=== PATIENT | female | born 1945 | race African-American/Black ===

== ENCOUNTER 2018-12-08 14:44 | Inpatient (IN) | payer MEDICARE, OTHER ==
[~2018-12-08 14:44] MED LIST: Iopamidol 370 76% 100 ML VIAL ONE
[2018-12-08] MEDS ORDERED: Morphine 4 MG/ML VIAL ONE (15:31)
[2018-12-08] MEDS ORDERED: Ondansetron PF 4 MG/2 ML Vial ONE (15:31)
--- NOTE | 2018-12-08 16:15 | RAD ---
AP VIEW CHEST: HISTORY: Syncope. History of GI bleeding. DATE: 12/08/2018. FINDINGS: AP view chest demonstrates intracardiac pacing device in place. Calcification of the aorta is seen. There is distension of the colon beneath the right and left hemidiaphragm. Surgical clips are seen in the left axillary region. IMPRESSION: Distended without evidence of definite free intraperitoneal air. No acute intrathoracic abnormality seen. POS: [facility]
[2018-12-08 16:17] LABS: #Eosinphils 0.1 thou/uL (0.0-0.7); #Lymphocytes 1.3 thou/uL (1.20-3.40); #Monocytes 0.4 thou/uL (0.11-0.59); #Neutrophils 4.4 thou/uL (1.40-6.50); %Basophils 0.4 % (0.0-1.0); %Eosinophils 2.3 % (0.0-10.0); %Lymphocytes 21.1 % (21.0-51.0); %Monocytes 6.2 % (0.0-10.0); Hemoglobin 14.4 g/dL (12.0-16.0); Mean Corpuscular HGB CONC 32.4 g/dL (32.0-36.0); Mean Corpuscular Volume 92.6 fL (78.0-98.0); Mean Platelet Volume 10.3 fL (7.4-10.4); Platelet Count 173 thou/uL (130-400); RBC Distribution Width 14.7 % (11.5-14.5); White Blood Cell (WBC) Count 6.3 thou/uL (4.8-10.8)
[2018-12-08 16:18] LABS: ALT (SGPT) 55 U/L (8-55); AST (SGOT) 92 U/L (5-34); Albumin 4.7 g/dL (3.4-4.8); Alkaline Phosphatase 108 U/L (40-150); Anion Gap 23 mmol/L (10-20); BUN (Urea Nitrogen) 17 mg/dL (9.8-20.1); Bilirubin, Total 0.6 mg/dL (0.2-1.2); CK (CPK) 60 U/L (29-168); Calc. Creatinine Clearance 0 mL/min (70-130); Carbon Dioxide 17 mmol/L (23-31); Chloride 102 mmol/L (98-107); Estimated GFR-MDRD 50; Globulin 4.4 g/dL (2.4-3.5); Glucose 131 mg/dL (83-110); Lipase 14 U/L (8-78); Potassium 3.6 mmol/L (3.5-5.1); Protein, Total 9.1 g/dL (6.0-8.3); Sodium 138 mmol/L (136-145)
[2018-12-08 16:26] LABS: Bilirubin Moderate (Negative); Blood, Urine Negative (Negative); Clarity TURBID (Clear); Glucose, Urine (Dipstick) Negative (Negative); Leukocyte Small (Negative); Nitrite Negative (Negative); Protein, Urine (Dipstick) 100 mg/dL (Neg-Trace); Specific Gravity, Urine 1.029 (1.002-1.036); pH, Urine 5.5 (5.0-9.0)
[2018-12-08 16:28] LABS: Squamous Epithelial 21-50 HPF (0-3)
[2018-12-08 16:32] LABS: Pathc Cast-AUWi Flag 20.78 (0-2.49)
[2018-12-08 16:42] LABS: Bacteria/HPF 1+ HPF (None Seen); RBC/HPF 0-3 HPF (0-3)
[2018-12-08 16:43] LABS: Crystals/HPF 1+ CA OXALATE HPF (Negative); Manual Microscopic Reviewed? No Path Casts Seen; Renal Epithelial None Seen HPF (0-3); Transitional Epithelial NONE SEEN HPF (0-3); Yeast-All Forms None Seen HPF (None Seen)
[2018-12-08 17:16] LABS: Base Excess-Venous 0.4 mmol/L (-2.0 to 3.0); Bicarbonate (HCO3v) 21.7 mmol/L (22.0-28.0); CO2 Tension (PvCO2) 25.5 mmHg (40.0-50.0); Calcium, Ionized 1.05 mmol/L (See Comments:); Chloride 105 mmol/L (98-107); Hemoglobin - Calc 12.4 g/dL (12.0-16.0); O2 Tension (PvO2) 191.1 mmHg (35.0-45.0); Potassium 3.8 mmol/L (3.5-5.1); Sodium 139 mmol/L (138-145); T. Carbon Dioxide 22.5 mmol/L (22.0-28.0); pH (Venous) 7.538 (7.320-7.430); vO2 Saturation-calc 99.8 % (60.0-85.0)
[2018-12-08 18:06] LABS: INR-International Normal Ratio 1.8; Prothrombin Time 21.3 SEC (12.0-14.7)
[2018-12-08] MEDS ORDERED: Sodium Chloride 0.9% 100 ML ONE (18:19)
[2018-12-08] MEDS ORDERED: Piperacillin/Tazobactam 4.5 GM VIAL ONE (18:19)
--- NOTE | 2018-12-08 19:26 | CT ---
CTA ABDOMEN AND PELVIS WITH IV CONTRAST AND 3D REFORMATTED IMAGING: INDICATIONS: History of atrial fibrillation, diabetes, and abdominal surgery, status post syncopal episode, with c hest pain and shortness of breath. FINDINGS: The lung bases are clear, except for mild subsegmental volume loss within both lower lobes. There are dilated loops of small bowel seen within the central abdomen. There is post surgical larose e of partial small bowel obstruction. There is transition zone due to decompressed bowel within the right mid abdomen, at the level of the anastomotic suture line of the right mid abdomen, on image 81 of series 2. The colon is largely decompressed. There is a moderate amount of retained stool within the visualized colon. No definite aortic stenosis, occlusion, or aneurysmal formation is demonstrated. The celiac, SMA, re nal arteries, and ZOYA are patent. There are mild vascular calcifications involving the abdominal aor ta and the iliac vasculature. Small calcifications are seen within the lower pelvis, suspicious for small phleboliths. Low density material is seen within the uterine canal, which is nonspecific. No lymphadenopathy or free fluid is evident. The gallbladder is surgically absent. There is fatty infiltration of the liver. The spleen, pancreas, and adrenal glands are normal appearing. There is diffuse osteopenia. IMPRESSION: 1. Findings of severe partial small bowel obstruction with a transition zone seen at the level of th e anastomotic suture line within the right lower quadrant of the abdomen. 2. Fatty liver. 3. Bibasilar atelectasis. 4. Mild amount of retained stool within the colon. 5. Some low density material seen distending the endometrial canal is nonspecific and may be artifac tual in nature. A non-emergent follow-up pelvic ultrasound may be helpful for improved characterizat ion. Endometrial abnormalities, such as hyperplasia or polyposis, is not excluded. 6. Other chronic findings as above. POS: [facility]
[2018-12-08] MEDS ORDERED: hydrALAZINE 20 MG/ML VIAL SLOW IVP PRN (20:14)
[2018-12-08] MEDS ORDERED: Morphine 4 MG/ML VIAL SLOW IVP PRN ×2 (20:14)
[2018-12-08] MEDS ORDERED: Ondansetron PF 4 MG/2 ML Vial IVP PRN (20:14)
[2018-12-08] MEDS ORDERED: Ketorolac Tromethamine 30 MG/ML VIAL IVP PRN (20:17)
[2018-12-08] MEDS ORDERED: Acetaminophen 1,000 MG in Premix Bag 1 BAG IVPB PRN (20:17)
--- NOTE | 2018-12-08 20:41 | RAD ---
SINGLE VIEW ABDOMEN: INDICATIONS: history of a GI bleed and NG tube placement. FINDINGS: Since the CT of the abdomen and pelvis dated 11/28/2018, there has been placement of a gastric cathet er, coiled within the region of the fundus and projecting in the region of the gastric body. There a re numerous dilated loops of small bowel. The lung bases are clear. There is partial visualization of a pacemaker generator overlying the left lower chest wall. IMPRESSION: 1. Nasogastric tube as above. 2. Severe partial small bowel obstruction. POS: [facility]
[2018-12-08 21:15] LABS: Lactic Acid 1.6 mmol/L (0.5-2.2)
--- NOTE | 2018-12-08 22:29 | HP ---
HISTORY OF PRESENT ILLNESS: A 72-year-old black female, brought to the hospital because of acute onset of abdominal distention and pain, nausea, and vomiting. She last had a bowel movement this morning. She passed flatus this morning, but not since her abdominal pain started and she had distention. She had laboratories noting a white count of 6, hemoglobin of 14. Her sodium was 139, potassium 3.8, carbon dioxide 17, BUN 17, and creatinine 1.27. Lactic acid 2.8, calcium 11.0. Liver function tests are normal. SOCIAL HISTORY: Tobacco, none. Alcohol, none. MEDICATIONS: Not listed, but she reports she is on Coumadin, last took it yesterday. Did not have a list of her medications. PAST SURGICAL HISTORY: The patient reports having laparoscopic appendectomy in February 2018 at [facility], laparoscopic cholecystectomy in August 2018 at [facility]. She underwent apparent laparotomy for bowel obstruction in October 2014. She had to be readmitted apparently for an NG tube. Her history is somewhat confusing. She has an infraumbilical scar. She reports is old, but she is unable to give me the history of that. ALLERGIES: BACTRIM. PAST MEDICAL HISTORY: Atrial fibrillation, on anticoagulation. She has a pacemaker. She cannot recall her desolderer name when she last saw him. PHYSICAL EXAMINATION: VITAL SIGNS: Heart rate 74, respiratory rate 18. HEAD EARS, EYES, NOSE, AND THROAT: Unremarkable. LUNGS: Clear to auscultation. CARDIAC: Regular rate and rhythm without murmur or gallop. ABDOMEN: Distended, tympanitic, scars per above history. LABORATORY DATA: Abdominal and pelvis CAT scan. CTA reveals dilated loops of small bowel, postsurgical changes, small bowel obstruction transition zone to digressed bowel within the right mid abdomen at the level of anastomotic suture line of the right tylor-abdomen, colon is decompressed, large amount of retained stool, gallbladder surgically active. Fatty liver. No lymphadenopathy. Diffuse osteopenia. Uterus in place. PT 21, INR 1.8. White count 6, hemoglobin 14. ASSESSMENT AND PLAN: 1. Bowel obstruction. The patient with some reluctance to allow this, placed an NG tube is placed to low intermittent suction. The patient will be admitted with repeat abdominal x-rays tomorrow. IV fluid resuscitation for dehydration. Follow up x-rays and we will make further recommendations pending clinical course. 2. Status post recent hospitalization at [facility] for bowel obstruction, now with recurrent bowel obstruction. 3. History of atrial fibrillation, on anticoagulation. 4. Pacemaker status. 5. Hypertension. Job ID: [id number]
[2018-12-09] MEDS ORDERED: Morphine 4 MG/ML VIAL ONE (00:09)
[2018-12-09] MEDS ORDERED: Ondansetron PF 4 MG/2 ML Vial ONE (00:14)
[2018-12-09] MEDS ORDERED: Enoxaparin Sodium 40 MG/0.4 ML SYRINGE ONE (02:23)
[2018-12-09 03:41] LABS: #Lymphocytes 0.9 thou/uL (1.20-3.40); #Monocytes 0.4 thou/uL (0.11-0.59); #Neutrophils 3.6 thou/uL (1.40-6.50); %Basophils 0.3 % (0.0-1.0); %Eosinophils 0.7 % (0.0-10.0); %Lymphocytes 18.4 % (21.0-51.0); %Monocytes 8.3 % (0.0-10.0); %Neutrophils 72.3 % (42.0-75.0); Hemoglobin 12.9 g/dL (12.0-16.0); Mean Corpuscular Hemoglobin 29.5 pg (27.0-31.0); Mean Corpuscular Volume 92.3 fL (78.0-98.0); Mean Platelet Volume 8.4 fL (7.4-10.4); Platelet Count 224 thou/uL (130-400); RBC Distribution Width 14.5 % (11.5-14.5); Red Blood Cell (RBC) Count 4.39 mill/uL (4.20-5.40)
[2018-12-09] MEDS ORDERED: Ketorolac Tromethamine 30 MG/ML VIAL ONE ×2 (03:45→15:51)
[2018-12-09 03:55] LABS: ALT (SGPT) 66 U/L (8-55); AST (SGOT) 72 U/L (5-34); Albumin 4.2 g/dL (3.4-4.8); Alkaline Phosphatase 94 U/L (40-150); Anion Gap 17 mmol/L (10-20); BUN (Urea Nitrogen) 18 mg/dL (9.8-20.1); Bilirubin, Total 0.5 mg/dL (0.2-1.2); Calc. Creatinine Clearance 0 mL/min (70-130); Carbon Dioxide 23 mmol/L (23-31); Chloride 105 mmol/L (98-107); Estimated GFR-MDRD 50; Globulin 3.7 g/dL (2.4-3.5); Glucose 114 mg/dL (83-110); Potassium 3.6 mmol/L (3.5-5.1); Protein, Total 7.9 g/dL (6.0-8.3); Sodium 141 mmol/L (136-145)
[2018-12-09] MEDS: Lactated Ringer's 1,000 ML IV SCH ×4 (08:15→21:52)
[2018-12-09] MEDS: Pantoprazole 40 MG VIAL IVP SCH (08:15)
[2018-12-09] MEDS: Enoxaparin Sodium 40 MG/0.4 ML SYRINGE SC SCH ×2 (08:18→19:16)
[2018-12-09 09:53] VITALS: BMI 22.7
--- NOTE | 2018-12-09 10:40 | RAD ---
ABDOMEN TWO VIEWS: CHEST UPRIGHT VIEW: HISTORY: Small bowel obstruction. COMPARISON: 12/08/2018 FINDINGS: Supine and upright views of the abdomen and upright view of the chest show multiple air-filled loops of bowel. These are both large and small bowel loops. Air and stool are seen to the level of the co karina. No free air is seen on the upright examination. Air-fluid levels are seen on the upright exami nation. An NG tube is seen in the stomach. A pacemaker is seen with its leads in the right atrium and ventricle. There is elevation of the righ t hemidiaphragm. IMPRESSION: 1. Findings consistent with small bowel obstruction. 2. No significant change has occurred compared to the prior radiograph. POS: [facility]
[2018-12-09] MEDS ORDERED: Acetaminophen 1,000 MG in Premix Bag 1 BAG IVPB SCH (13:00)
[2018-12-09] MEDS ORDERED: cefOXitin 2 GM in Sodium Chloride 0.9% 100 ML IVPB SCH (13:00)
--- NOTE | 2018-12-09 13:23 | PRG ---
DATE OF SERVICE: 12/09/2018 SUBJECTIVE: Ms. Duval today has not passed any gas or stool since she has been in the emergency room last night. 97.3 degrees, 69, 138/62. NG tube output on the floor is about 300 to 400 mL. It is fecal in nature. Her white count this morning is 5, hemoglobin 12.9. Basic metabolic profile is normal. CO2 of 23. Sodium 141, creatinine 1.27. The patient's abdominal x-rays this morning revealed marked distention of small bowel. Proper NG tube positioning. Findings consistent with complete bowel obstruction. There is no significant gas or stool in her colon. There are markedly distended small bowel loops. OBJECTIVE: LUNGS: Clear to auscultation. CARDIAC: Regular rate and rhythm. ABDOMEN: Soft, distended, tympanitic. No evidence of hernias. ASSESSMENT AND PLAN: Complete bowel obstruction. Would recommend laparotomy, adhesiolysis, procedures indicated. I have talked to the family about general anesthesia and a TAP block. I have discussed with them the possibilities of closed-loop obstruction and possibility of ischemic or gangrenous bowel, although she is not tachycardic. White count is normal and CO2 is normal. Given these concerns and lack of flatus or stool, would recommend laparotomy today. Job ID: [id number]
[2018-12-09] MEDS ORDERED: PROPOFOL 200 MG/20 ML VIAL ONE (13:42)
[2018-12-09] MEDS ORDERED: PHENYLEPHRINE-NS 100 MCG/ML 10 ML SYRINGE ONE (13:42)
[2018-12-09] MEDS ORDERED: Rocuronium Bromide 10 MG/ML (10ML VIAL) ONE (13:42)
[2018-12-09] MEDS ORDERED: Bupivacaine HCl 0.5%/Epinephrine 1:200,000/PF 30 ml Vial ONE (13:42)
[2018-12-09] MEDS ORDERED: Lidocaine 1% PF 5 ML VIAL ONE (13:42)
[2018-12-09] MEDS ORDERED: Glycopyrrolate 0.2 MG/ML 5 ML SYRINGE ONE (13:42)
[2018-12-09] MEDS ORDERED: cefOXitin Sodium/Dextrose,Iso 2 GM in Premix Bag 1 BAG IVPB SCH (13:45)
[2018-12-09] MEDS ORDERED: Fentanyl 100 MCG/2 ML VIAL ONE ×4 (14:19→19:41)
[2018-12-09] MEDS ORDERED: Midazolam HCl 2 mg/2 ml Vial ONE (14:19)
[2018-12-09] MEDS ORDERED: Ondansetron HCl/PF 4 MG/2 ML Vial IVP PRN (19:22)
--- NOTE | 2018-12-09 19:28 | RAD ---
CHEST ONE VIEW 12/09/18 INDICATION: Central line placement. FINDINGS: There is a right subclavian central venous catheter projecting in the region of the cavoatrial juncti on. There is gas underlying the hemidiaphragms consistent with the patient's recent postop state. Gas tric catheter projects in the region of the gastric fundus. Heart size is normal. There is a dual le ad pacemaker overlying the left chest wall. No acute osseous abnormality is evident. IMPRESSION: 1. Right subclavian central venous catheter projecting in the cavoatrial junction. No pneumotho rax is demonstrated. 2. Pneumoperitoneum consistent with patient's recent postoperative state from a laparotomy. 3. Gastric catheter tip projecting in the region of the fundus. POS: [facility]
[2018-12-09] MEDS: Acetaminophen 1,000 MG in Premix Bag 1 BAG IVPB SCH (23:44)
--- NOTE | 2018-12-10 01:10 | OP ---
DATE OF PROCEDURE: 12/09/2018 PREOPERATIVE DIAGNOSIS: Small bowel obstruction at the ileoileal anastomosis performed at [facility] earlier this year. POSTOPERATIVE DIAGNOSES: Small bowel obstruction at the ileoileal anastomosis performed at [facility] earlier this year and poor IV access. PROCEDURES: 1. Placement of right subclavian vein central line. 2. Laparotomy. 3. Ileocecal resection with anastomosis. ANESTHESIA: General, TAP block. ESTIMATED BLOOD LOSS: 100 mL. DESCRIPTION OF PROCEDURE: The patient was taken to the operating room, where under general anesthesia, Yu catheter was placed, and right paraclavicular area was prepared with ChloraPrep and draped in routine fashion. Trocar catheter introduced in the right subclavian vein in infraclavicular approach, obtained good return of venous blood, J-wire threaded, trocar catheter removed, and skin was enlarged sharply. Dilator was placed and removed. Distal port of the triple-lumen catheter was placed over the J-wire into the subclavian vein and 2 interrupted suture of 3-0 silk. J-wire removed. Sterile dressing applied. Each port filled with blood and flushed with saline solution and connected to IV fluid solution. Abdomen was prepared with ChloraPrep and draped in routine fashion Yu catheter was placed at the beginning of the procedure and left. A midline incision made through the old scar and carried down the skin, subcutaneous tissue, midline fascia, and abdominal cavity sharply. Small bowel was markedly dilated from the ligament of Treitz distally, had ileoileal anastomosis near the terminal ileum. Staple line was appreciated, and small bowel was dilated proximal to this, and a 4 inch segment of ileum was not dilated. It was felt, although I could not palpate an obstructive process. This is the point of obstruction both appreciated radiologically on CAT scan and laparotomy. For this reason, ileocecectomy undertaken by mobilizing the right colon hepatic flexure using the cautery. The ileocecectomy identified resecting the small bowel ileum just proximal to ileoileal anastomosis, divided the mesentery between clamps and ligated with 2-0 silk ties using the LigaSure. Cecum dissected free and staying close to the ileocecal area and the colon to preserve blood supply. The mesentery was divided serially with the LigaSure. Midtransverse colon divided with a DIAMANTE stapler and a [id number]-[id number] anastomosis created with 2 fires of DIAMANTE blue load stapler. Mesenteric defect closed with 2-0 silk, anastomosis reinforced with interrupted Lembert suture with 3-0 silk. Staple line inverted with 3-0 silk for hemostasis. Good anastomosis palpated. Small bowel contents milked retrograde into the stomach and new NG tube exchanger noted to be in good position. Abdominal cavity is irrigated and irrigant evacuated. Wound was protected during the procedure and contaminated material was discarded, and gloves and gowns exchanged prior to closing the wound and completing the operation. Midline fascia was closed with continuous suture of #1 PDS. Skin and subcutaneous tissues irrigated copiously. Good hemostasis ensured. Skin approximated with philip. Prevena applied. The patient tolerated the procedure well. Job ID: [id number]
[2018-12-10] MEDS: Acetaminophen 1,000 MG in Premix Bag 1 BAG IVPB SCH ×4 (05:02→23:38)
[2018-12-10] MEDS: Lactated Ringer's 1,000 ML IV SCH ×3 (05:03→18:20)
[2018-12-10 07:16] LABS: #Eosinphils 0.1 thou/uL (0.0-0.7); #Lymphocytes 0.4 thou/uL (1.20-3.40); #Monocytes 0.3 thou/uL (0.11-0.59); #Neutrophils 3.1 thou/uL (1.40-6.50); %Eosinophils 2.9 % (0.0-10.0); %Lymphocytes 10.3 % (21.0-51.0); %Monocytes 6.9 % (0.0-10.0); %Neutrophils 79.9 % (42.0-75.0); Hemoglobin 10.9 g/dL (12.0-16.0); Mean Corpuscular HGB CONC 32.3 g/dL (32.0-36.0); Mean Corpuscular Hemoglobin 30.3 pg (27.0-31.0); Mean Platelet Volume 8.4 fL (7.4-10.4); Platelet Count 179 thou/uL (130-400); RBC Distribution Width 14.2 % (11.5-14.5); Red Blood Cell (RBC) Count 3.61 mill/uL (4.20-5.40); White Blood Cell (WBC) Count 3.9 thou/uL (4.8-10.8)
[2018-12-10 07:40] LABS: ALT (SGPT) 30 U/L (8-55); AST (SGOT) 27 U/L (5-34); Albumin 2.9 g/dL (3.4-4.8); Alkaline Phosphatase 63 U/L (40-150); Anion Gap 10 mmol/L (10-20); BUN (Urea Nitrogen) 19 mg/dL (9.8-20.1); Bilirubin, Total 0.5 mg/dL (0.2-1.2); Calc. Creatinine Clearance 53 mL/min (70-130); Calcium 8.4 mg/dL (7.8-10.44); Carbon Dioxide 26 mmol/L (23-31); Chloride 108 mmol/L (98-107); Estimated GFR-MDRD 69; Globulin 2.6 g/dL (2.4-3.5); Glucose 73 mg/dL (83-110); Potassium 3.4 mmol/L (3.5-5.1); Protein, Total 5.5 g/dL (6.0-8.3); Sodium 141 mmol/L (136-145)
[2018-12-10] MEDS: Ketorolac Tromethamine 30 MG/ML VIAL IVP SCH (09:27)
[2018-12-10] MEDS: Pantoprazole 40 MG VIAL IVP SCH (09:28)
[2018-12-10] MEDS ORDERED: Potassium Chloride 40 MEQ in Premix Bag 1 BAG IVPB SCH (12:30)
--- NOTE | 2018-12-10 12:50 | PRG ---
DATE OF SERVICE: 12/10/2018 SUBJECTIVE: Ms. Duval is doing well today. She is 97.7, 85, 135/79. She NG tube. She feels much better. She is not having any abdominal pain. Prevena wound suction device over abdomen to be removed prior to discharge. OBJECTIVE: LUNGS: Clear to auscultation. CARDIAC: Regular rate and rhythm. No murmur or gallop. ABDOMEN: Soft. Bowel sounds present. Nondistended. Non-tympanitic. EXTREMITIES: Unremarkable. LABORATORY DATA: White count 3, hemoglobin 10.9. Basic metabolic profile; sodium 141, potassium 3.4, chloride 108, glucose 73 creatinine is normalized to 0.96, it was 1.27 yesterday on admission. ASSESSMENT AND PLAN: One day postop ileocecectomy for obstruction and prior ileal anastomosis performed at [facility] in the last few months. Pathology pending. No intraoperative finding to suggest a malignancy. Await pathology report. We would remove her NG tube. Continue sips and chips, and sips of water, probably start her on liquids tomorrow if she does not have any nausea or vomiting. Job ID: [id number]
[2018-12-10] MEDS: Potassium Chloride 20 MEQ in Premix Bag 1 BAG IVPB SCH ×2 (14:39→16:12)
[2018-12-10] MEDS: Enoxaparin Sodium 40 MG/0.4 ML SYRINGE SC SCH (20:36)
[2018-12-11 05:18] LABS: Anion Gap 10 mmol/L (10-20); BUN (Urea Nitrogen) 19 mg/dL (9.8-20.1); Calc. Creatinine Clearance 61 mL/min (70-130); Calcium 8.1 mg/dL (7.8-10.44); Carbon Dioxide 23 mmol/L (23-31); Chloride 109 mmol/L (98-107); Estimated GFR-MDRD 80; Glucose 63 mg/dL (83-110); Sodium 138 mmol/L (136-145)
[2018-12-11] MEDS: Lactated Ringer's 1,000 ML IV SCH (06:33)
[2018-12-11] MEDS: Acetaminophen 1,000 MG in Premix Bag 1 BAG IVPB SCH ×2 (06:33→11:54)
[2018-12-11 06:52] LABS: #Eosinphils 0.5 thou/uL (0.0-0.7); #Lymphocytes 0.7 thou/uL (1.20-3.40); #Monocytes 0.3 thou/uL (0.11-0.59); #Neutrophils 3.6 thou/uL (1.40-6.50); %Basophils 0.3 % (0.0-1.0); %Eosinophils 9.1 % (0.0-10.0); %Lymphocytes 14.1 % (21.0-51.0); %Monocytes 6.1 % (0.0-10.0); %Neutrophils 70.4 % (42.0-75.0); Hemoglobin 9.5 g/dL (12.0-16.0); Mean Corpuscular Hemoglobin 29.4 pg (27.0-31.0); Mean Corpuscular Volume 94.8 fL (78.0-98.0); Mean Platelet Volume 8.5 fL (7.4-10.4); Platelet Count 172 thou/uL (130-400); RBC Distribution Width 14.3 % (11.5-14.5); Red Blood Cell (RBC) Count 3.24 mill/uL (4.20-5.40); White Blood Cell (WBC) Count 5.1 thou/uL (4.8-10.8)
[2018-12-11] MEDS: Ketorolac Tromethamine 30 MG/ML VIAL IVP SCH (08:04)
[2018-12-11] MEDS ORDERED: traMADol HCl 50 MG TAB PO PRN ×2 (08:38)
--- NOTE | 2018-12-11 14:21 | PRG ---
DATE OF SERVICE: 12/11/2018 SUBJECTIVE: Irma Duval is doing well today. She is tolerating her diet. She is concerned about having some blood with her stool yesterday, but has not had any more bleeding today. OBJECTIVE: VITAL SIGNS: Temperature 97.8, heart rate 70, blood pressure 111/63. GENERAL: She is tolerating her full liquid diet. She is not having nausea or vomiting. LUNGS: Clear to auscultation. CARDIAC: Rhythm rate and rhythm without murmur or gallop. ABDOMEN: Soft, nontender. Wound Prevena VAC in place. LABORATORY DATA: Hemoglobin this morning is 9.5, yesterday 10.9. Chemistries normal. Normal BUN and creatinine. ASSESSMENT AND PLAN: The patient is doing well today. Her wound is doing well. She is having a slight amount of bleeding per rectum occasionally with stools. Lovenox will be held and CBC checked tomorrow, and anticipate, she can be discharged home tomorrow. Job ID: [id number]
[2018-12-11] MEDS: metFORMIN 500 MG TAB PO SCH (17:15)
[2018-12-12 04:57] LABS: #Eosinphils 0.4 thou/uL (0.0-0.7); #Lymphocytes 0.7 thou/uL (1.20-3.40); #Monocytes 0.3 thou/uL (0.11-0.59); %Eosinophils 9.6 % (0.0-10.0); %Lymphocytes 15.9 % (21.0-51.0); %Monocytes 5.8 % (0.0-10.0); %Neutrophils 68.7 % (42.0-75.0); Hemoglobin 8.7 g/dL (12.0-16.0); Mean Corpuscular HGB CONC 32.3 g/dL (32.0-36.0); Mean Corpuscular Hemoglobin 30.7 pg (27.0-31.0); Platelet Count 163 thou/uL (130-400); RBC Distribution Width 13.9 % (11.5-14.5); Red Blood Cell (RBC) Count 2.84 mill/uL (4.20-5.40); White Blood Cell (WBC) Count 4.4 thou/uL (4.8-10.8)
[2018-12-12] MEDS ORDERED: Acetaminophen 500 MG TAB PO PRN (06:00)
[2018-12-12] MEDS ORDERED: Levothyroxine Sodium 25 MCG TAB PO SCH (06:00)
[2018-12-12] MEDS: metFORMIN 500 MG TAB PO SCH (07:43)
[2018-12-12] MEDS ORDERED: Atorvastatin Calcium 40 MG TAB PO SCH (09:00)
[2018-12-12] MEDS ORDERED: Warfarin Sodium 10 MG TAB PO SCH (09:00)
--- NOTE | 2018-12-12 10:53 | PRG ---
DATE OF SERVICE: 12/12/2018 SUBJECTIVE: Irma Duval is doing well today. She is tolerating diet. She has had a bowel movement. She has not had any more rectal bleeding. Lovenox was held last night. OBJECTIVE: VITAL SIGNS: 97.9 degrees, 79, and 125/73. HEAD, EARS, EYES, NOSE, AND THROAT: Unremarkable. LUNGS: Clear to auscultation. CARDIAC: Regular rate and rhythm without murmur or gallop. ABDOMEN: Soft and nontender. Prevena wound VAC removed. Staple line intact. EXTREMITIES: Unremarkable. ASSESSMENT AND PLAN: The patient is doing well. She has had 1 of 2 blood cultures positive just for gram-positive coccus. I just called in my microbiology, this is from admission ER on 12/08/2018. She has been afebrile. White count has been normal. I suspect this is a contaminant as it is only 1 of 2 cultures. We will give her 1 dose of vancomycin before removing her central line and we will send her home with Bactrim DS 1 p.o. b.i.d. and she will follow up in my office in a week to 10 days for staple removal. Job ID: [id number]
[2018-12-12] MEDS ORDERED: Vancomycin HCl 1 GM in Premix Bag 1 BAG IVPB SCH (11:30)
[2018-12-12 11:43] VITALS: BP 136/87; TEMP 98.7
--- NOTE | 2018-12-12 12:05 | DIS ---
DATE OF ADMISSION: 12/08/2018 DATE OF DISCHARGE: 12/12/2018 DISCHARGE DIAGNOSES: Bowel obstruction from ileoileal anastomosis. Pathology reveals small bowel smokeless ischemic CAT changes, extensive adhesions surrounding this foreign body giant cell reaction near the ileoileal anastomosis margin resections free of ischemia. No malignancy. Ileocecectomy performed. PROCEDURE ON THIS HOSPITALIZATION: Abdominal pelvis CTA from the emergency room, abdominal x-rays on 12/09/2018, laparotomy adhesiolysis, ileocecectomy resection with anastomosis, and Prevena wound VAC applied. HISTORY: A 72-year-old black female with multiple operations, [facility] reports here out of frustration due to recurrent problems, she was seen on CAT scan to have what looked like a bowel obstruction and a previous ileoileal anastomosis. She was unaware of any small bowel resection to be performed at [facility] in the past. She for this reason, was taken to the operating room and operation performed open because of distended bowel. Findings were that of markedly distended small bowel with thickened wall, indicating chronic nature with ileal anastomosis and a short segment ileum before the cecum nondistended. She underwent ileocecal anastomosis resection and anastomosis in postop did well, convalesced, tolerated diet. She remained afebrile. In the emergency room, she had had 2 blood cultures obtained on the date of planned discharge. Microbiology called and stated that 1 of 2 cultures positive for gram-positive coccus. She has been afebrile and asymptomatic and white count is normal. She was given 1 dose of vancomycin prior to discharge, sent home with Ultram p.r.n. pain, Tylenol, Motrin p.r.n. pain, and Cipro 500 p.o. b.i.d. for 1 week and follow up in my office in about a week. Job ID: [id number]
[2018-12-12 13:19] LABS: INR-International Normal Ratio 2.7
[2018-12-12] MEDS ORDERED: Ciprofloxacin 500 MG TAB PO SCH (20:00)
--- NOTE | 2018-12-13 15:28 | EKG ---
Test Reason : Blood Pressure : / mmHG Vent. Rate : 095 BPM Atrial Rate : 095 BPM P-R Int : 196 ms QRS Dur : 072 ms QT Int : 366 ms P-R-T Axes : 106 -25 166 degrees QTc Int : 459 ms Normal sinus rhythm Left ventricular hypertrophy with repolarization abnormality Inferior infarct , age undetermined Left axis deviation Inverted T wave V3, V4,V6 Abnormal ECG Confirmed by YOJANA Aguirre, TEETEE ([id number]), editor in chief newspaper KAY CARTER ([id number]) on 12/13/2018 3:28:26 PM Referred By: Confirmed By:TEETEE DIAL M.D.
== END 2018-12-12 13:20 | disposition home or self-care (01) | DRG 330 ==
LOC: ERS 14:44 → ERHOLD 20:14 → T4-B 12-09 07:40 → SJJU 12-09 20:14
PROVIDERS: ADMIT Specialist; ATTEND Specialist
PROC: 0DTH0ZZ Resection of Cecum, Open Approach (ICD-10-PCS; principal; 2018-12-09)
PROC: 05H533Z Insertion of Infusion Device into Right Subclavian Vein, Percutaneous Approach (ICD-10-PCS; 2018-12-09)
DX: K56.691 Other complete intestinal obstruction (principal); K62.5 Hemorrhage of anus and rectum; I48.91 Unspecified atrial fibrillation; I10 Essential (primary) hypertension; Z79.01 Long term (current) use of anticoagulants; Z95.0 Presence of cardiac pacemaker; Z88.2 Allergy status to sulfonamides
CPT/HCPCS: 36415; 36416; 51701; 71045; 74018; 74022; 74174; 80048; 80053; 81003; 81015; 82010; 82274; 82330; 82550; 82803; 83605; 83690; 84484; 85025; 85610; 85730; 86850; 86900; 86901; 87040; 87086; 87149; 88307; 93005; 94760; 96361; 96365; 96372; 96375; 96376; A4353; C9113; J0131; J0670; J1642; J1650; J1885; J2001; J2250; J2270; J2405; J2543; J2704; J3010; J3370; J3480; J7050; Q9967

== ENCOUNTER 2022-04-02 07:06 | Outpatient (CLI) | payer MEDICARE ==
[2022-04-02 07:54] LABS: #Eosinphils 0.1 10x3/uL (0.0-0.5); #Monocytes 0.4 10x3/uL (0.0-1.1); #Neutrophils 2.2 10x3/uL (1.5-8.4); %Basophils 0.5 % (0.0-2.0); %Lymphocytes 32.1 % (18.0-47.0); %Monocytes 9.5 % (0.0-10.0); %Neutrophils 55.6 % (40.0-75.0); Mean Corpuscular HGB CONC 33.8 g/dL (32.0-36.0); Mean Corpuscular Volume 91.6 fl (81.6-98.3); Mean Platelet Volume 10.2 fl (7.4-10.4); Platelet Count 200 10x3/uL (150-450); RBC Distribution Width 15.1 % (11.5-14.5); Red Blood Cell (RBC) Count 4.52 10x6/uL (3.90-5.03)
[2022-04-02 08:00] LABS: INR-International Normal Ratio 1.2; Prothrombin Time 13.2 sec (9.5-12.1)
[2022-04-02 08:33] LABS: Anion Gap 16 mmol/L (10-20); BUN (Urea Nitrogen) 17 mg/dL (9.8-20.1); Calc. Creatinine Clearance 0 mL/min (70-130); Calcium 9.6 mg/dL (7.8-10.44); Carbon Dioxide 22 mmol/L (23-31); Chloride 109 mmol/L (98-107); Glucose 77 mg/dL (83-110); Potassium 3.8 mmol/L (3.5-5.1); Sodium 143 mmol/L (136-145)
== END 2022-04-02 07:07 | disposition home or self-care (01) ==
LOC: LABBT 07:06
PROVIDERS: ATTEND Internal Medicine Cardiovascular Disease
DX: Z01.812 Encounter for preprocedural laboratory examination (principal); I50.22 Chronic systolic (congestive) heart failure; T82.111A Breakdown (mechanical) of cardiac pulse generator (battery), initial encounter; Z20.822 Contact with and (suspected) exposure to COVID-19
CPT/HCPCS: 80048; 85025; 85610; U0003; U0005

== ENCOUNTER → 2022-04-05 | Day surgery (SDC) | payer MEDICARE ==
[2022-04-03 11:09] VITALS: BMI 21.9
[~2022-04-05] MED LIST changes: +CEFAZOLIN 1 GM VIAL ONE; +Fentanyl 100 MCG/2 ML VIAL ONE; +Gentamicin 80 MG/2 ML VIAL ONE; -Iopamidol 370 76% 100 ML VIAL ONE; +Lidocaine 1% (PF) 30 ML VIAL ONE; +Midazolam HCl 2 mg/2 ml Vial ONE; +Vancomycin 1.5 GRAM/300 ML BAG 1.5 GM in Premix Bag 1 BAG IVPB SCH
== END | disposition home or self-care (01) ==
LOC: SDC 11:45
PROVIDERS: ATTEND Internal Medicine Cardiovascular Disease
PROC: 0JPT0PZ Removal of Cardiac Rhythm Related Device from Trunk Subcutaneous Tissue and Fascia, Open Approach (ICD-10-PCS; principal; 2022-04-05)
PROC: 0JH606Z Insertion of Pacemaker, Dual Chamber into Chest Subcutaneous Tissue and Fascia, Open Approach (ICD-10-PCS; 2022-04-05)
PROC: 3E0102A Introduction of Anti-Infective Envelope into Subcutaneous Tissue, Open Approach (ICD-10-PCS; 2022-04-05)
DX: Z45.010 Encounter for checking and testing of cardiac pacemaker pulse generator [battery] (principal); I49.5 Sick sinus syndrome; I11.0 Hypertensive heart disease with heart failure; I50.22 Chronic systolic (congestive) heart failure; I48.0 Paroxysmal atrial fibrillation; E78.5 Hyperlipidemia, unspecified; E11.9 Type 2 diabetes mellitus without complications; E89.0 Postprocedural hypothyroidism; Z79.01 Long term (current) use of anticoagulants; Z79.84 Long term (current) use of oral hypoglycemic drugs; Z79.890 Hormone replacement therapy; Z79.899 Other long term (current) drug therapy; Z88.2 Allergy status to sulfonamides; Z88.5 Allergy status to narcotic agent
CPT/HCPCS: 33228; C1785; J3370; 99152; 99153; J0690; J1580; J2001; J2250; J3010

== ENCOUNTER 2023-01-09 14:43 | Emergency (ER) | payer MEDICARE, OTHER ==
[~2023-01-09 14:43] MED LIST changes: -CEFAZOLIN 1 GM VIAL ONE; -Fentanyl 100 MCG/2 ML VIAL ONE; -Gentamicin 80 MG/2 ML VIAL ONE; +Iopamidol-370 76% 500 ML MDV (1 ML CHARGE) ONE; -Lidocaine 1% (PF) 30 ML VIAL ONE; -Midazolam HCl 2 mg/2 ml Vial ONE; -Vancomycin 1.5 GRAM/300 ML BAG 1.5 GM in Premix Bag 1 BAG IVPB SCH
[2023-01-09 16:22] LABS: #Lymphocytes 0.7 thou/uL (1.20-3.40); #Monocytes 0.2 thou/uL (0.11-0.59); #Neutrophils 3.7 thou/uL (1.40-6.50); %Basophils 0.6 % (0.0-1.0); %Eosinophils 0.3 % (0.0-10.0); %Lymphocytes 15.5 % (21.0-51.0); %Monocytes 4.1 % (0.0-10.0); %Neutrophils 79.4 % (42.0-75.0); Hemoglobin 14.2 g/dL (12.0-16.0); Mean Corpuscular HGB CONC 33.6 g/dL (32.0-36.0); Mean Corpuscular Hemoglobin 32.1 pg (27.0-31.0); Mean Corpuscular Volume 95.5 fl (78.0-98.0); Platelet Count 165 10x3/uL (130-400); Red Blood Cell (RBC) Count 4.43 mill/uL (4.20-5.40); White Blood Cell (WBC) Count 4.7 10x3/uL (4.8-10.8)
[2023-01-09] MEDS ORDERED: Ondansetron PF 4 MG/2 ML Vial ONE (16:36)
[2023-01-09 16:47] LABS: ALT (SGPT) 31 U/L (8-55); AST (SGOT) 29 U/L (5-34); Albumin 4.3 g/dL (3.4-4.8); Alkaline Phosphatase 101 U/L (40-110); Anion Gap 17 mmol/L (10-20); BUN (Urea Nitrogen) 15 mg/dL (9.8-20.1); Bilirubin, Total 0.5 mg/dL (0.2-1.2); Calc. Creatinine Clearance 0 mL/min (70-130); Calcium 9.6 mg/dL (7.8-10.44); Carbon Dioxide 20 mmol/L (23-31); Chloride 109 mmol/L (98-107); Estimated GFR 51; Globulin 3.4 g/dL (2.4-3.5); Glucose 112 mg/dL (83-110); Lipase 12 U/L (8-78); Protein, Total 7.7 g/dL (5.8-8.1); Sodium 142 mmol/L (136-145)
[2023-01-09] MEDS ORDERED: Morphine 2 MG/ML VIAL ONE (17:22)
[2023-01-09 18:45] LABS: Bacteria/HPF None Seen HPF (None Seen); Bilirubin Negative (Negative); Blood, Urine 3+ (Negative); Clarity Clear (Clear); Glucose, Urine (Dipstick) Normal (Negative); Ketone, Urine Negative (Negative); Leukocyte Negative Leu/uL (Negative); Nitrite Negative (Negative); Protein, Urine (Dipstick) Negative (Neg-Trace); RBC/HPF Greater than 50 HPF (0-3); Squamous Epithelial None Seen HPF (0-3); Urobilinogen Normal mg/dL (Less than 2); pH, Urine 5.5 (5.0-9.0)
[2023-01-09 19:10] LABS: SARS-CoV-2 NAA Rapid Test Not Detected (NotDetected)
== END 2023-01-09 18:54 | disposition home or self-care (01) ==
LOC: ERS 14:43
DX: N13.2 Hydronephrosis with renal and ureteral calculous obstruction (principal); D72.819 Decreased white blood cell count, unspecified; E03.9 Hypothyroidism, unspecified; E11.9 Type 2 diabetes mellitus without complications; I10 Essential (primary) hypertension; E78.5 Hyperlipidemia, unspecified; Z79.01 Long term (current) use of anticoagulants; Z20.822 Contact with and (suspected) exposure to COVID-19
CPT/HCPCS: 36415; 51701; 71045; 74177; 80053; 81003; 81015; 83690; 85025; 93005; 96374; 96375; J2272; J2405; Q9967

== ENCOUNTER 2023-12-24 | Inpatient (IN) | payer MEDICARE | END 2024-01-04 12:51 | disposition home or self-care (01) | DRG 330 | PROVIDERS: ADMIT Specialist | PROC: 0DS80ZZ Reposition Small Intestine, Open Approach (ICD-10-PCS; principal; 2023-12-24) | PROC: 0D980ZZ Drainage of Small Intestine, Open Approach (ICD-10-PCS; 2023-12-24) | PROC: 0D9670Z Drainage of Stomach with Drainage Device, Via Natural or Artificial Opening (ICD-10-PCS; 2023-12-24) | PROC: 02H633Z Insertion of Infusion Device into Right Atrium, Percutaneous Approach (ICD-10-PCS; 2023-12-24) | PROC: 3E033XZ Introduction of Vasopressor into Peripheral Vein, Percutaneous Approach (ICD-10-PCS; 2023-12-24) | PROC: 30233J1 Transfusion of Nonautologous Serum Albumin into Peripheral Vein, Percutaneous Approach (ICD-10-PCS; 2023-12-24) | PROC: 30283B1 Transfusion of Nonautologous 4-Factor Prothrombin Complex Concentrate into Vein, Percutaneous Approach (ICD-10-PCS; 2023-12-24) | DX: K56.2 Volvulus (principal); I48.20 Chronic atrial fibrillation, unspecified; N17.9 Acute kidney failure, unspecified; Q43.8 Other specified congenital malformations of intestine; K56.50 Intestinal adhesions [bands], unspecified as to partial versus complete obstruction; I49.5 Sick sinus syndrome; K56.7 Ileus, unspecified; Z88.2 Allergy status to sulfonamides; Z88.8 Allergy status to other drugs, medicaments and biological substances; Z90.49 Acquired absence of other specified parts of digestive tract; Z79.899 Other long term (current) drug therapy; Z95.0 Presence of cardiac pacemaker; Z79.890 Hormone replacement therapy; Z98.890 Other specified postprocedural states ==

== ENCOUNTER 2024-01-06 23:09 | Inpatient (IN) | payer MEDICARE ==
[2024-01-07 00:38] LABS: #Eosinphils 0.1 thou/uL (0.0-0.7); #Monocytes 0.4 thou/uL (0.11-0.59); %Basophils 0.5 % (0.0-1.0); %Eosinophils 1.3 % (0.0-10.0); %Lymphocytes 10.1 % (21.0-51.0); %Neutrophils 81.4 % (42.0-75.0); Hematocrit 44.4 % (36.0-47.0); Hemoglobin 14.5 g/dL (12.0-16.0); Mean Corpuscular HGB CONC 32.7 g/dL (32.0-36.0); Mean Corpuscular Hemoglobin 30.3 pg (27.0-31.0); Mean Corpuscular Volume 92.9 fl (78.0-98.0); Mean Platelet Volume 8.7 fL (7.4-10.4); Platelet Count 425 10x3/uL (130-400); RBC Distribution Width 13.7 % (11.5-14.5); Red Blood Cell (RBC) Count 4.78 mill/uL (4.20-5.40); White Blood Cell (WBC) Count 6.1 10x3/uL (4.8-10.8)
[2024-01-07] MEDS ORDERED: Morphine 4 MG/ML VIAL ONE (00:51)
[2024-01-07] MEDS ORDERED: Ondansetron PF 4 MG/2 ML Vial ONE (00:51)
[2024-01-07 01:04] LABS: ALT (SGPT) 34 U/L (8-55); AST (SGOT) 45 U/L (5-34); Albumin 4.3 g/dL (3.4-4.8); Alkaline Phosphatase 96 U/L (40-110); Anion Gap 17 mmol/L (10-20); BUN (Urea Nitrogen) 21 mg/dL (9.8-20.1); Bilirubin, Total 0.7 mg/dL (0.2-1.2); Calc. Creatinine Clearance 0 mL/min (70-130); Calcium 9.8 mg/dL (7.8-10.44); Carbon Dioxide 21 mmol/L (23-31); Chloride 103 mmol/L (98-107); Estimated GFR 42; Globulin 3.9 g/dL (2.4-3.5); Glucose 97 mg/dL (83-110); Potassium 3.9 mmol/L (3.5-5.1); Protein, Total 8.2 g/dL (5.8-8.1); Sodium 137 mmol/L (136-145)
[2024-01-07] MEDS ORDERED: Ipratropium/Albuterol 3 ML NEB NEB PRN (02:02)
[2024-01-07] MEDS ORDERED: Morphine 2 MG/ML VIAL SLOW IVP PRN (02:02)
[2024-01-07] MEDS ORDERED: Ondansetron PF 4 MG/2 ML Vial IVP PRN ×2 (02:02→02:15)
[2024-01-07] MEDS ORDERED: Acetaminophen 325 MG TAB PO PRN (02:15)
[2024-01-07] MEDS ORDERED: Ondansetron ODT 4 MG TAB SL PRN (02:15)
[2024-01-07 03:02] VITALS: BMI 19.1
[2024-01-07 05:44] LABS: Anion Gap 15 mmol/L (10-20); BUN (Urea Nitrogen) 20 mg/dL (9.8-20.1); Calc. Creatinine Clearance 39 mL/min (70-130); Calcium 8.4 mg/dL (7.8-10.44); Carbon Dioxide 20 mmol/L (23-31); Chloride 106 mmol/L (98-107); Estimated GFR 56; Glucose 74 mg/dL (83-110); INR-International Normal Ratio 1.2; PTT 26.8 sec (22.9-36.1); Potassium 3.9 mmol/L (3.5-5.1); Prothrombin Time 14.7 sec (12.0-14.7); Sodium 137 mmol/L (136-145)
[2024-01-07 06:43] LABS: #Eosinphils 0.1 thou/uL (0.0-0.7); #Monocytes 0.5 thou/uL (0.11-0.59); #Neutrophils 3.9 thou/uL (1.40-6.50); %Basophils 0.7 % (0.0-1.0); %Eosinophils 1.3 % (0.0-10.0); %Lymphocytes 18.9 % (21.0-51.0); %Monocytes 8.7 % (0.0-10.0); Hematocrit 37.5 % (36.0-47.0); Hemoglobin 12.4 g/dL (12.0-16.0); Mean Corpuscular HGB CONC 33.1 g/dL (32.0-36.0); Mean Corpuscular Hemoglobin 31.2 pg (27.0-31.0); Mean Corpuscular Volume 94.5 fl (78.0-98.0); Mean Platelet Volume 9.1 fL (7.4-10.4); RBC Distribution Width 13.7 % (11.5-14.5); Red Blood Cell (RBC) Count 3.97 mill/uL (4.20-5.40); White Blood Cell (WBC) Count 5.5 10x3/uL (4.8-10.8)
[2024-01-07 06:44] LABS: Platelet Count 315 10x3/uL (130-400)
[2024-01-07] MEDS: Famotidine/PF 20 mg/2ml Vial SLOW IVP SCH (10:17)
[2024-01-07] MEDS ORDERED: Iopamidol-370 76% 500 ML MDV (1 ML CHARGE) ONE (13:17)
[2024-01-08 06:00] LABS: Hematocrit 39.1 % (36.0-47.0); Hemoglobin 12.9 g/dL (12.0-16.0); Mean Corpuscular Hemoglobin 31.2 pg (27.0-31.0); Mean Corpuscular Volume 94.4 fl (78.0-98.0); Mean Platelet Volume 9.2 fL (7.4-10.4); Platelet Count 395 10x3/uL (130-400); RBC Distribution Width 13.9 % (11.5-14.5); Red Blood Cell (RBC) Count 4.14 mill/uL (4.20-5.40); White Blood Cell (WBC) Count 4.4 10x3/uL (4.8-10.8)
[2024-01-08 06:19] LABS: Anion Gap 10 mmol/L (10-20); BUN (Urea Nitrogen) 15 mg/dL (9.8-20.1); Calc. Creatinine Clearance 47 mL/min (70-130); Calcium 8.4 mg/dL (7.8-10.44); Carbon Dioxide 27 mmol/L (23-31); Chloride 105 mmol/L (98-107); Estimated GFR 70; Glucose 66 mg/dL (83-110); Potassium 3.5 mmol/L (3.5-5.1); Sodium 138 mmol/L (136-145)
[2024-01-08] MEDS: Potassium Chloride 20 MEQ TAB PO SCH (08:06)
[2024-01-08] MEDS: Enoxaparin 40 MG (0.4 mL) SYRINGE SC SCH (08:06)
[2024-01-08] MEDS: Lactated Ringer's 1,000 ML IV SCH ×2 (12:33→18:16)
[2024-01-08] MEDS ORDERED: Ketorolac Tromethamine 30 MG (1 mL) VIAL ONE (13:24)
[2024-01-08] MEDS ORDERED: Piperacillin/Tazobactam 3.375 GM VIAL ONE (13:24)
[2024-01-08] MEDS ORDERED: Sodium Chloride 0.9% 100 ML ONE (13:24)
[2024-01-08] MEDS ORDERED: EPINEPHrine 1 MG/ML VIAL ONE (13:44)
[2024-01-08] MEDS ORDERED: Heparin 10,000 UNITS/ 10 ML VIAL ONE (13:44)
[2024-01-08] MEDS ORDERED: Bupivacaine PF 0.5% 30 ML VIAL ONE (13:44)
[2024-01-08] MEDS ORDERED: PROPOFOL 20 ML ONE (14:06)
[2024-01-08] MEDS ORDERED: fentaNYL 50 mcg/mL 1 mL Vial ONE ×2 (14:06→16:38)
[2024-01-08] MEDS ORDERED: Rocuronium Bromide 10 MG/ML (10ML VIAL) ONE (14:06)
[2024-01-08] MEDS ORDERED: Esmolol 100 MG/10 ML VIAL ONE (14:06)
[2024-01-08] MEDS ORDERED: Lidocaine 1% PF 5 ML VIAL ONE (14:06)
[2024-01-08] MEDS ORDERED: PHENYLEPHRINE-NS 100 MCG/ML 10 ML SYRINGE ONE (14:07)
[2024-01-08] MEDS ORDERED: SUCCINYLCHOLINE/SOD CL,ISO/PF 200 MG/10 ML SYRINGE FS ONE (14:27)
[2024-01-08] MEDS ORDERED: Dexamethasone 20 MG/5 ML VIAL ONE (14:57)
[2024-01-08] MEDS ORDERED: Lidocaine 2% PF 5 ML VIAL ONE (16:38)
[2024-01-08] MEDS ORDERED: SUGAMMADEX SODIUM 200 MG/2 ML VIAL ONE (16:38)
[2024-01-08] MEDS ORDERED: Ondansetron PF 4 MG/2 ML Vial ONE (16:39)
[2024-01-08] MEDS ORDERED: diphenhydrAMINE 50 MG/ML VIAL IM PRN (17:03)
[2024-01-08] MEDS ORDERED: Naloxone HCl 0.4 mg/ml Vial IV PRN (17:03)
[2024-01-08] MEDS ORDERED: diphenhydrAMINE 50 MG/ML VIAL IVP PRN (17:03)
[2024-01-08] MEDS ORDERED: diphenhydrAMINE 25 MG CAP PO PRN (17:03)
[2024-01-08] MEDS ORDERED: Promethazine HCl 25 MG/ML VIAL IM PRN ×2 (17:03)
[2024-01-08] MEDS ORDERED: FENTANYL 500 MCG/10 ML VIAL 2,000 MCG in Sodium Chloride 0.9% 60 ML IV PRN (17:03)
[2024-01-08] MEDS ORDERED: Morphine Sulfate 2 MG/ML SYRINGE SLOW IVP PRN (17:03)
[2024-01-08] MEDS ORDERED: Ondansetron HCl/PF 4 MG/2 ML Vial IVP PRN (17:03)
[2024-01-08] MEDS ORDERED: PACU-Morphine 4MG/ML VIAL SLOW IVP PRN (17:03)
[2024-01-08] MEDS ORDERED: Communication Order-Pharmacy FS SCH (17:15)
[2024-01-08] MEDS ORDERED: fentaNYL PF 100 MCG/2 ML SYRINGE ONE (17:17)
[2024-01-08] MEDS: traZODone HCl 50 MG TAB PO SCH (20:23)
[2024-01-09] MEDS: Levothyroxine Sodium 25 MCG TAB PO SCH (05:43)
[2024-01-09 06:00] LABS: #Eosinphils 0.1 thou/uL (0.0-0.7); #Monocytes 0.4 thou/uL (0.11-0.59); #Neutrophils 13.6 thou/uL (1.40-6.50); %Basophils 0.2 % (0.0-1.0); %Eosinophils 0.3 % (0.0-10.0); %Lymphocytes 2.1 % (21.0-51.0); %Monocytes 2.6 % (0.0-10.0); %Neutrophils 94.3 % (42.0-75.0); Hematocrit 36.4 % (36.0-47.0); Hemoglobin 12.4 g/dL (12.0-16.0); Mean Corpuscular HGB CONC 34.1 g/dL (32.0-36.0); Mean Corpuscular Hemoglobin 31.8 pg (27.0-31.0); Mean Corpuscular Volume 93.3 fl (78.0-98.0); Mean Platelet Volume 8.6 fL (7.4-10.4); Platelet Count 283 10x3/uL (130-400); White Blood Cell (WBC) Count 14.4 10x3/uL (4.8-10.8)
[2024-01-09 06:18] LABS: ALT (SGPT) 16 U/L (8-55); AST (SGOT) 18 U/L (5-34); Albumin 2.5 g/dL (3.4-4.8); Alkaline Phosphatase 46 U/L (40-110); Anion Gap 9 mmol/L (10-20); BUN (Urea Nitrogen) 12 mg/dL (9.8-20.1); Bilirubin, Total 0.5 mg/dL (0.2-1.2); Calc. Creatinine Clearance 48 mL/min (70-130); Calcium 7.4 mg/dL (7.8-10.44); Carbon Dioxide 23 mmol/L (23-31); Chloride 108 mmol/L (98-107); Estimated GFR 72; Globulin 2.1 g/dL (2.4-3.5); Glucose 115 mg/dL (83-110); Magnesium 1.1 mg/dL (1.6-2.6); Potassium 4.1 mmol/L (3.5-5.1); Protein, Total 4.6 g/dL (5.8-8.1); Sodium 136 mmol/L (136-145)
[2024-01-09] MEDS: Magnesium Sulfate 3 GM, Admixture Fee 1 EACH in Sodium Chloride 0.9% 100 ML IVPB SCH (08:06)
[2024-01-09] MEDS: dilTIAZem CD 240 MG CAP PO SCH (08:10)
[2024-01-10 11:12] LABS: #Basophils Less than 0.03 10x3/uL (0.0-0.2); %Basophils 0.1 % (0.0-1.0); %Lymphocytes 3.6 % (21.0-51.0); %Monocytes 2.5 % (0.0-10.0); %Neutrophils 88.2 % (42.0-75.0); Hemoglobin 11.9 g/dL (12.0-16.0); Mean Corpuscular Hemoglobin 31.8 pg (27.0-31.0); Mean Corpuscular Volume 93.6 fl (78.0-98.0); Mean Platelet Volume 9.5 fL (7.4-10.4); Platelet Count 278 10x3/uL (130-400); RBC Distribution Width 14.4 % (11.5-14.5); Red Blood Cell (RBC) Count 3.74 mill/uL (4.20-5.40)
[2024-01-11 09:48] LABS: Anion Gap 17 mmol/L (10-20); BUN (Urea Nitrogen) 16 mg/dL (9.8-20.1); Calc. Creatinine Clearance 45 mL/min (70-130); Calcium 8.8 mg/dL (7.8-10.44); Carbon Dioxide 16 mmol/L (23-31); Chloride 104 mmol/L (98-107); Estimated GFR 67; Glucose 81 mg/dL (83-110); Sodium 131 mmol/L (136-145)
[2024-01-11] MEDS: Simethicone Chewable 80 MG TAB PO PRN (12:31)
[2024-01-11 12:54] LABS: Hematocrit 39.2 % (36.0-47.0); Mean Corpuscular HGB CONC 33.2 g/dL (32.0-36.0); Mean Corpuscular Hemoglobin 30.8 pg (27.0-31.0); Mean Corpuscular Volume 92.9 fL (78.0-98.0); Mean Platelet Volume 9.7 fL (7.4-10.4); Platelet Count 299 10x3/uL (130-400); RBC Distribution Width 14.3 % (11.5-14.5); Red Blood Cell (RBC) Count 4.22 mill/uL (4.20-5.40)
[2024-01-11] MEDS: Ondansetron PF 4 MG/2 ML Vial IVP PRN (17:27)
[2024-01-11] MEDS: Ketorolac Tromethamine 30 MG (1 mL) VIAL IVP PRN (21:27)
[2024-01-12 06:24] LABS: #Basophils Less than 0.03 10x3/uL (0.0-0.2); %Eosinophils 6.7 % (0.0-10.0); %Lymphocytes 13.8 % (21.0-51.0); %Neutrophils 69.5 % (42.0-75.0); Hematocrit 31.5 % (36.0-47.0); Hemoglobin 10.8 g/dL (12.0-16.0); Mean Corpuscular HGB CONC 34.3 g/dL (32.0-36.0); Mean Corpuscular Hemoglobin 31.9 pg (27.0-31.0); Mean Corpuscular Volume 92.9 fL (78.0-98.0); Mean Platelet Volume 9.7 fL (7.4-10.4); Platelet Count 242 10x3/uL (130-400); RBC Distribution Width 14.1 % (11.5-14.5); Red Blood Cell (RBC) Count 3.39 mill/uL (4.20-5.40)
[2024-01-12 06:48] LABS: ALT (SGPT) 18 U/L (8-55); AST (SGOT) 18 U/L (5-34); Albumin 2.6 g/dL (3.4-4.8); Alkaline Phosphatase 61 U/L (40-110); Anion Gap 12 mmol/L (10-20); BUN (Urea Nitrogen) 18 mg/dL (9.8-20.1); Bilirubin, Total 0.8 mg/dL (0.2-1.2); Calc. Creatinine Clearance 48 mL/min (70-130); Calcium 8.2 mg/dL (7.8-10.44); Carbon Dioxide 24 mmol/L (23-31); Chloride 100 mmol/L (98-107); Estimated GFR 72; Globulin 2.7 g/dL (2.4-3.5); Glucose 115 mg/dL (83-110); Potassium 4.1 mmol/L (3.5-5.1); Protein, Total 5.3 g/dL (5.8-8.1); Sodium 132 mmol/L (136-145)
[2024-01-12] MEDS: Morphine 2 MG/ML VIAL SLOW IVP PRN (11:00)
[2024-01-12] MEDS: Bisacodyl 10 MG SUPP PR PRN (11:01)
[2024-01-13] MEDS: Metoclopramide HCl 10 MG (2 mL) VIAL IVP SCH (12:37)
[2024-01-14 08:52] LABS: #Basophils Less than 0.03 10x3/uL (0.0-0.2); %Lymphocytes 13.9 % (21.0-51.0); %Monocytes 14.3 % (0.0-10.0); %Neutrophils 66.1 % (42.0-75.0); Hematocrit 37.6 % (36.0-47.0); Hemoglobin 12.8 g/dL (12.0-16.0); Mean Platelet Volume 9.9 fL (7.4-10.4); Platelet Count 218 10x3/uL (130-400); RBC Distribution Width 13.8 % (11.5-14.5); Red Blood Cell (RBC) Count 4.13 mill/uL (4.20-5.40)
[2024-01-14 09:08] LABS: Phosphorus 3.3 mg/dL (2.3-4.7)
[2024-01-14 09:12] LABS: Anion Gap 17 mmol/L (10-20); BUN (Urea Nitrogen) 22 mg/dL (9.8-20.1); Calc. Creatinine Clearance 47 mL/min (70-130); Calcium 8.1 mg/dL (7.8-10.44); Carbon Dioxide 17 mmol/L (23-31); Chloride 104 mmol/L (98-107); Estimated GFR 71; Glucose 56 mg/dL (83-110); Magnesium 1.5 mg/dL (1.6-2.6); Sodium 134 mmol/L (136-145)
[2024-01-14] MEDS ORDERED: Sodium Bicarbonate 2.5 MEQ/5 ML SDV ONE (10:33)
[2024-01-14] MEDS ORDERED: Lidocaine 1% PF 5 ML VIAL ONE (10:33)
[2024-01-14] MEDS: Magnesium Sulfate In Water 4 GM in Premix 1 BAG IVPB SCH (11:48)
[2024-01-14] MEDS ORDERED: Multivitamins, Adult 10 ML, TRACE ELEMENT CONCENTRATE 1 ML in D15W-AA 5% with Lytes 2,0... IV SCH (14:00)
[2024-01-14] MEDS: D5W-AA 4.25% with LYTES 1,000 ML IV SCH (17:20)
[2024-01-14] MEDS: Furosemide 20 MG (2 mL) VIAL SLOW IVP SCH (18:09)
[2024-01-15 06:25] LABS: Magnesium 1.6 mg/dL (1.6-2.6)
[2024-01-15 06:55] LABS: Cardiac Risk 3.2 (Less than 4.5)
[2024-01-15] MEDS ORDERED: LYTES IN TPN IVPB PRN (09:26)
[2024-01-15] MEDS ORDERED: Electrolyte Replacement Protocol FS PRN (09:30)
[2024-01-15] MEDS: Magnesium 2 GM/50 ML(in water) 2 GM in Premix 1 BAG IVPB SCH (10:07)
[2024-01-15] MEDS: Multivitamins, Adult 10 ML, TRACE ELEMENT CONCENTRATE 1 ML in D15W-AA 5% with Lytes 2,0... IV SCH (15:25)
[2024-01-16 06:47] LABS: Anion Gap 8 mmol/L (10-20); BUN (Urea Nitrogen) 21 mg/dL (9.8-20.1); Calc. Creatinine Clearance 60 mL/min (70-130); Calcium 7.7 mg/dL (7.8-10.44); Carbon Dioxide 29 mmol/L (23-31); Chloride 99 mmol/L (98-107); Estimated GFR 89; Glucose 203 mg/dL (83-110); Magnesium 1.7 mg/dL (1.6-2.6); Phosphorus 2.7 mg/dL (2.3-4.7); Potassium 3.2 mmol/L (3.5-5.1); Sodium 133 mmol/L (136-145)
[2024-01-16] MEDS: Famotidine/PF 20 mg/2ml Vial SLOW IVP SCH (09:30)
[2024-01-16] MEDS: Magnesium Sulfate In Water 4 GM in Premix 1 BAG IVPB SCH (09:30)
[2024-01-16] MEDS: Potassium Chloride 20 MEQ in Premix 1 BAG IVPB SCH (09:33)
[2024-01-16] MEDS: Multivitamins, Adult 10 ML, TRACE ELEMENT CONCENTRATE 1 ML in D15W-AA 5% with Lytes 2,0... IV SCH (15:46)
[2024-01-16] MEDS: Morphine 2 MG/ML VIAL SLOW IVP SCH (17:08)
[2024-01-16] MEDS: Lorazepam 2 MG/ML VIAL SLOW IVP SCH (20:18)
[2024-01-16] MEDS: Benzocaine 20% Spray 60 ML CAN PO SCH (20:42)
[2024-01-16] MEDS: Lidocaine Jelly 2% Urojet 10 ML I-URETHRAL SCH (20:42)
[2024-01-16] MEDS: 1/2 NS w/Potassium 20 mEq 1,000 ML IV SCH (21:35)
[2024-01-17 06:00] LABS: Anion Gap 9 mmol/L (10-20); BUN (Urea Nitrogen) 29 mg/dL (9.8-20.1); Calc. Creatinine Clearance 61 mL/min (70-130); Calcium 7.7 mg/dL (7.8-10.44); Carbon Dioxide 26 mmol/L (23-31); Chloride 99 mmol/L (98-107); Estimated GFR 89; Glucose 175 mg/dL (83-110); Phosphorus 3.1 mg/dL (2.3-4.7); Potassium 4.1 mmol/L (3.5-5.1); Sodium 130 mmol/L (136-145)
[2024-01-17] MEDS: Magnesium 2 GM/50 ML(in water) 2 GM in Premix 1 BAG IVPB SCH (08:53)
[2024-01-18] MEDS: Morphine 2 MG/ML VIAL SLOW IVP PRN ×2 (10:40→21:33)
[2024-01-19 06:45] LABS: #Basophils Less than 0.03 10x3/uL (0.0-0.2); %Basophils 0.3 % (0.0-1.0); %Eosinophils 13.3 % (0.0-10.0); %Lymphocytes 9.5 % (21.0-51.0); %Monocytes 13.9 % (0.0-10.0); %Neutrophils 62.5 % (42.0-75.0); Hemoglobin 9.7 g/dL (12.0-16.0); Mean Corpuscular HGB CONC 33.4 g/dL (32.0-36.0); Mean Corpuscular Volume 92.7 fL (78.0-98.0); Mean Platelet Volume 10.1 fL (7.4-10.4); Platelet Count 291 10x3/uL (130-400); RBC Distribution Width 13.9 % (11.5-14.5); Red Blood Cell (RBC) Count 3.13 mill/uL (4.20-5.40)
[2024-01-19 08:39] LABS: Anion Gap 7 mmol/L (10-20); BUN (Urea Nitrogen) 24 mg/dL (9.8-20.1); Calc. Creatinine Clearance 67 mL/min (70-130); Calcium 7.6 mg/dL (7.8-10.44); Carbon Dioxide 29 mmol/L (23-31); Chloride 98 mmol/L (98-107); Estimated GFR 91; Glucose 155 mg/dL (83-110); Magnesium 1.5 mg/dL (1.6-2.6); Phosphorus 3.3 mg/dL (2.3-4.7); Potassium 3.9 mmol/L (3.5-5.1); Sodium 130 mmol/L (136-145)
[2024-01-19] MEDS: Magnesium Sulfate In Water 4 GM in Premix 1 BAG IVPB SCH (11:25)
[2024-01-19] MEDS: Furosemide 20 MG (2 mL) VIAL SLOW IVP SCH (11:25)
[2024-01-20 05:18] LABS: INR-International Normal Ratio 1.2; Prothrombin Time 15.7 sec (12.0-14.7)
[2024-01-20 06:46] LABS: Chloride 97 mmol/L (98-107); Potassium 3.9 mmol/L (3.5-5.1); Sodium 132 mmol/L (136-145)
[2024-01-20 06:47] LABS: Glucose 131 mg/dL (83-110)
[2024-01-20 06:49] LABS: Anion Gap 11 mmol/L (10-20); Carbon Dioxide 28 mmol/L (23-31)
[2024-01-20 06:51] LABS: BUN (Urea Nitrogen) 25 mg/dL (9.8-20.1); Calc. Creatinine Clearance 61 mL/min (70-130); Estimated GFR 89
[2024-01-20 06:53] LABS: Magnesium 1.9 mg/dL (1.6-2.6)
[2024-01-20] MEDS ORDERED: Warfarin Sodium 10 MG TAB PO SCH (09:00)
[2024-01-20] MEDS: Magnesium 2 GM/50 ML(in water) 2 GM in Premix 1 BAG IVPB SCH (09:53)
[2024-01-20] MEDS: Atorvastatin Calcium 20 MG TAB PO SCH (09:53)
[2024-01-20] MEDS: Acetaminophen 325 MG TAB PO PRN (15:59)
[2024-01-20] MEDS: Lactulose 20 GM (30 mL) UDCUP PO SCH (20:48)
[2024-01-21] MEDS: Polyethylene Glycol 3350 17 GM Packet PO SCH (10:27)
[2024-01-21] MEDS: Metoclopramide 10 MG/10 ML UDCUP PER TUBE SCH (20:56)
[2024-01-22] MEDS ORDERED: Sodium Chloride 0.9% 100 ML ONE (10:50)
[2024-01-22] MEDS ORDERED: CEFAZOLIN 2 GM VIAL ONE (10:50)
[2024-01-22] MEDS ORDERED: PROPOFOL 40 ML ONE (11:02)
[2024-01-22] MEDS ORDERED: Midazolam HCl 2 mg/2 ml Vial ONE (11:02)
[2024-01-22] MEDS ORDERED: Promethazine HCl 25 MG/ML VIAL IM PRN (11:33)
[2024-01-22] MEDS ORDERED: HYDROmorphone 2 MG/ML VIAL SLOW IVP PRN (11:33)
[2024-01-22] MEDS ORDERED: Ondansetron HCl/PF 4 MG/2 ML Vial IVP PRN (11:33)
[2024-01-22] MEDS ORDERED: SUCCINYLCHOLINE/SOD CL,ISO/PF 200 MG/10 ML SYRINGE FS ONE (11:36)
[2024-01-22] MEDS ORDERED: PHENYLEPHRINE-NS 100 MCG/ML 10 ML SYRINGE ONE (11:36)
[2024-01-22] MEDS ORDERED: Rocuronium Bromide 10 MG/ML (10ML VIAL) ONE (11:36)
[2024-01-22] MEDS ORDERED: SUGAMMADEX SODIUM 200 MG/2 ML VIAL ONE (11:46)
[2024-01-22] MEDS ORDERED: Iopamidol-370 76% 500 ML MDV (1 ML CHARGE) ONE (13:13)
[2024-01-22] MEDS: Acetaminophen 500 MG TAB PO SCH (17:01)
[2024-01-22] MEDS: Ketorolac Tromethamine 30 MG (1 mL) VIAL IVP PRN (17:05)
[2024-01-23 05:16] LABS: Anion Gap 9 mmol/L (10-20); Globulin 3.4 g/dL (2.4-3.5)
[2024-01-23 05:20] LABS: ALT (SGPT) 96 U/L (8-55); AST (SGOT) 79 U/L (5-34); Albumin 1.6 g/dL (3.4-4.8); Alkaline Phosphatase 82 U/L (40-110); Bilirubin, Total 0.3 mg/dL (0.2-1.2); Calc. Creatinine Clearance 55 mL/min (70-130); Calcium 7.5 mg/dL (7.8-10.44); Carbon Dioxide 28 mmol/L (23-31); Chloride 97 mmol/L (98-107); Estimated GFR 86; Glucose 114 mg/dL (83-110); Phosphorus 3.3 mg/dL (2.3-4.7); Potassium 3.7 mmol/L (3.5-5.1); Sodium 130 mmol/L (136-145)
[2024-01-23 05:39] LABS: BUN (Urea Nitrogen) 30 mg/dL (9.8-20.1)
[2024-01-23 07:27] LABS: Magnesium 1.6 mg/dL (1.6-2.6)
[2024-01-23] MEDS: Magnesium 2 GM/50 ML(in water) 2 GM in Premix 1 BAG IVPB SCH (09:31)
[2024-01-24 05:14] LABS: Magnesium 1.9 mg/dL (1.6-2.6)
[2024-01-24] MEDS: Magnesium 2 GM/50 ML(in water) 2 GM in Premix 1 BAG IVPB SCH (08:37)
[2024-01-24] MEDS ORDERED: PROPOFOL 20 ML ONE (10:07)
[2024-01-24] MEDS ORDERED: Lidocaine 1% PF 5 ML VIAL ONE (10:07)
[2024-01-24] MEDS ORDERED: Ketamine In 0.9 % NaCl 50 MG/5 ML SYRINGE ONE (15:37)
[2024-01-25] MEDS: Levothyroxine Sodium 88 MCG TAB PO SCH (04:44)
[2024-01-25 05:26] LABS: Magnesium 1.9 mg/dL (1.6-2.6)
[2024-01-25] MEDS: Magnesium 2 GM/50 ML(in water) 2 GM in Premix 1 BAG IVPB SCH (09:38)
[2024-01-25 11:57] LABS: Hematocrit 31.7 % (36.0-47.0); Hemoglobin 10.6 g/dL (12.0-16.0); Mean Corpuscular HGB CONC 33.4 g/dL (32.0-36.0); Mean Corpuscular Hemoglobin 30.7 pg (27.0-31.0); Mean Corpuscular Volume 91.9 fL (78.0-98.0); Mean Platelet Volume 10.1 fL (7.4-10.4); Platelet Count 374 10x3/uL (130-400); RBC Distribution Width 13.8 % (11.5-14.5); Red Blood Cell (RBC) Count 3.45 mill/uL (4.20-5.40)
[2024-01-25 12:27] LABS: #Basophils 0.03 10x3/uL (0.0-0.2); %Basophils 0.8 % (0.0-1.0); %Eosinophils 4.5 % (0.0-10.0); %Lymphocytes 15.6 % (21.0-51.0); %Neutrophils 61.2 % (42.0-75.0); Band 11 % (5-11); Blast 0 % (0-0); Eosinophils 5 % (0-10); Lymphocytes 9 % (21-51); Metamyelocyte 0 % (0-0); Monocytes 21 % (0-10); Myelocyte 0 % (0-0); Neutrophil 54 % (42-75); Plasma Cells 0 % (0-0); Platelet Adequacy Comment Appears Adequate; Promyelocytes 0 % (0-0); RBC Morphology Within Normal Limits; Reactive Lymphocytes 0 % (0-10); Total Cell Count 100
[2024-01-25 13:02] LABS: Anion Gap 10 mmol/L (10-20); Globulin 3.7 g/dL (2.4-3.5)
[2024-01-25 13:07] LABS: ALT (SGPT) 81 U/L (8-55); AST (SGOT) 59 U/L (5-34); Albumin 1.5 g/dL (3.4-4.8); Alkaline Phosphatase 99 U/L (40-110); BUN (Urea Nitrogen) 20 mg/dL (9.8-20.1); Bilirubin, Total 0.3 mg/dL (0.2-1.2); Calc. Creatinine Clearance 63 mL/min (70-130); Calcium 7.6 mg/dL (7.8-10.44); Carbon Dioxide 25 mmol/L (23-31); Chloride 101 mmol/L (98-107); Estimated GFR 90; Glucose 158 mg/dL (83-110); Potassium 3.3 mmol/L (3.5-5.1); Protein, Total 5.2 g/dL (5.8-8.1); Sodium 133 mmol/L (136-145)
[2024-01-25] MEDS: Potassium Chloride 20 MEQ in Premix 1 BAG IVPB SCH (22:34)
[2024-01-26 05:10] LABS: Magnesium 1.9 mg/dL (1.6-2.6)
[2024-01-26] MEDS: Magnesium 2 GM/50 ML(in water) 2 GM in Premix 1 BAG IVPB SCH (08:09)
[2024-01-26] MEDS: Benzocaine 20% Spray 60 ML CAN PO SCH (15:32)
[2024-01-28] MEDS: Erythromycin 250 MG in Sodium Chloride 0.9% 250 ML 250 ML IVPB SCH (10:35)
[2024-01-28] MEDS: Morphine 2 MG/ML VIAL SLOW IVP SCH (16:32)
[2024-01-29 06:02] LABS: Anion Gap 9 mmol/L (10-20); Globulin 3.6 g/dL (2.4-3.5)
[2024-01-29 06:07] LABS: ALT (SGPT) 80 U/L (8-55); AST (SGOT) 66 U/L (5-34); Albumin 1.8 g/dL (3.4-4.8); Alkaline Phosphatase 98 U/L (40-110); BUN (Urea Nitrogen) 29 mg/dL (9.8-20.1); Bilirubin, Total 0.3 mg/dL (0.2-1.2); Calc. Creatinine Clearance 61 mL/min (70-130); Calcium 7.7 mg/dL (7.8-10.44); Carbon Dioxide 26 mmol/L (23-31); Chloride 101 mmol/L (98-107); Estimated GFR 89; Glucose 105 mg/dL (83-110); Magnesium 1.6 mg/dL (1.6-2.6); Phosphorus 3.5 mg/dL (2.3-4.7); Potassium 3.6 mmol/L (3.5-5.1); Protein, Total 5.4 g/dL (5.8-8.1); Sodium 132 mmol/L (136-145)
[2024-01-29] MEDS: Magnesium 2 GM/50 ML(in water) 2 GM in Premix 1 BAG IVPB SCH (08:18)
[2024-01-29] MEDS: Lorazepam 2 MG/ML VIAL SLOW IVP SCH (11:24)
[2024-01-29] MEDS: Benzocaine 20% Spray 60 ML CAN PO SCH (11:26)
[2024-01-29] MEDS: Lidocaine Jelly 2% Urojet 10 ML I-URETHRAL SCH (11:27)
[2024-01-29] MEDS: Morphine 2 MG/ML VIAL SLOW IVP PRN (17:34)
[2024-01-30 04:37] LABS: Magnesium 1.9 mg/dL (1.6-2.6)
[2024-01-30] MEDS: Magnesium 2 GM/50 ML(in water) 2 GM in Premix 1 BAG IVPB SCH (08:51)
[2024-01-31 06:15] LABS: Magnesium 1.9 mg/dL (1.6-2.6)
[2024-01-31] MEDS: Magnesium 2 GM/50 ML(in water) 2 GM in Premix 1 BAG IVPB SCH (09:05)
[2024-02-01 04:37] LABS: Magnesium 2.2 mg/dL (1.6-2.6)
[2024-02-02 06:13] LABS: Anion Gap 9 mmol/L (10-20)
[2024-02-02 06:15] LABS: BUN (Urea Nitrogen) 30 mg/dL (9.8-20.1); Calc. Creatinine Clearance 63 mL/min (70-130); Calcium 7.8 mg/dL (7.8-10.44); Carbon Dioxide 24 mmol/L (23-31); Estimated GFR 90; Glucose 100 mg/dL (83-110); Potassium 3.8 mmol/L (3.5-5.1); Sodium 135 mmol/L (136-145)
[2024-02-02 06:41] LABS: Chloride 106 mmol/L (98-107)
[2024-02-03 06:04] LABS: Hematocrit 28.2 % (36.0-47.0); Hemoglobin 8.6 g/dL (12.0-16.0); Platelet Count 276 10x3/uL (130-400)
[2024-02-05 10:31] LABS: Phosphorus 3.4 mg/dL (2.3-4.7)
[2024-02-06] MEDS: NEOSTIGMINE SC SCH (21:29)
[2024-02-06] MEDS: ADMIXTURE FEE SC SCH (21:29)
[2024-02-07] MEDS: Acetaminophen 500 MG TAB PO PRN (09:00)
[2024-02-08 07:00] LABS: #Basophils 0.01 10x3/uL (0.0-0.2); #Eosinphils 0.03 10x3/uL (0.0-0.7); #Monocytes 0.84 10x3/uL (0.11-0.59); #Neutrophils 1.81 10x3/uL (1.40-6.50); %Basophils 0.3 % (0.0-1.0); %Eosinophils 0.8 % (0.0-10.0); %Lymphocytes 26.4 % (21.0-51.0); %Monocytes 22.9 % (0.0-10.0); %Neutrophils 49.3 % (42.0-75.0); Hematocrit 26.4 % (36.0-47.0); Hemoglobin 8.7 g/dL (12.0-16.0); Mean Corpuscular Hemoglobin 30.9 pg (27.0-31.0); Mean Corpuscular Volume 93.6 fL (78.0-98.0); Mean Platelet Volume 9.7 fL (7.4-10.4); Platelet Count 348 10x3/uL (130-400); RBC Distribution Width 15.3 % (11.5-14.5); Red Blood Cell (RBC) Count 2.82 mill/uL (4.20-5.40); White Blood Cell (WBC) Count 3.67 10x3/uL (4.8-10.8)
[2024-02-08 07:57] LABS: Band 5 % (5-11); Eosinophils 1 % (0-10); Large Platelets 2.6 % (0-5); Lymphocytes 24 % (21-51); Monocytes 17 % (0-10); Neutrophil 51 % (42-75); Platelet Adequacy Comment Platelets Normal; RBC Morphology Within Normal Limits; Reactive Lymphocytes 1 % (0-10)
[2024-02-08 08:01] LABS: Anion Gap 8 mmol/L (10-20); Globulin 4.5 g/dL (2.4-3.5)
[2024-02-08 08:05] LABS: ALT (SGPT) 74 U/L (8-55); AST (SGOT) 33 U/L (5-34); Albumin 2.1 g/dL (3.4-4.8); Alkaline Phosphatase 87 U/L (40-110); BUN (Urea Nitrogen) 28 mg/dL (9.8-20.1); Bilirubin, Total 0.3 mg/dL (0.2-1.2); Calc. Creatinine Clearance 64 mL/min (70-130); Calcium 8.1 mg/dL (7.8-10.44); Carbon Dioxide 24 mmol/L (23-31); Chloride 104 mmol/L (98-107); Estimated GFR 90; Glucose 122 mg/dL (83-110); Magnesium 1.6 mg/dL (1.6-2.6); Potassium 3.6 mmol/L (3.5-5.1); Protein, Total 6.6 g/dL (5.8-8.1); Sodium 132 mmol/L (136-145)
[2024-02-08 08:06] LABS: Phosphorus 2.9 mg/dL (2.3-4.7)
[2024-02-08] MEDS: Magnesium 2 GM/50 ML(in water) 2 GM in Premix 1 BAG IVPB SCH (12:32)
[2024-02-10] MEDS: Morphine 2 MG/ML VIAL SLOW IVP PRN (00:03)
[2024-02-10 15:31] LABS: Anion Gap 10 mmol/L (10-20); Anion Gap 11 mmol/L (10-20)
[2024-02-10 15:33] LABS: BUN (Urea Nitrogen) 23 mg/dL (9.8-20.1); Calc. Creatinine Clearance 61 mL/min (70-130); Calcium 8.6 mg/dL (7.8-10.44); Carbon Dioxide 23 mmol/L (23-31); Chloride 101 mmol/L (98-107); Estimated GFR 89; Glucose 100 mg/dL (83-110); Potassium 3.4 mmol/L (3.5-5.1); Sodium 131 mmol/L (136-145)
[2024-02-10 15:34] LABS: BUN (Urea Nitrogen) 23 mg/dL (9.8-20.1); Calc. Creatinine Clearance 61 mL/min (70-130); Calcium 8.3 mg/dL (7.8-10.44); Carbon Dioxide 23 mmol/L (23-31); Chloride 101 mmol/L (98-107); Estimated GFR 89; Glucose 100 mg/dL (83-110); Potassium 3.5 mmol/L (3.5-5.1); Sodium 131 mmol/L (136-145)
[2024-02-10 15:56] LABS: Band 2 % (5-11); Burr Cells SLIGHT = 2-5 cells HPF (0-1); Eosinophils 2 % (0-10); Large Platelets 2.9 % (0-5); Lymphocytes 29 % (21-51); Monocytes 27 % (0-10); Neutrophil 39 % (42-75); Platelet Adequacy Comment Platelets Normal; Polychromasia SLIGHT = 2-3 cells HPF (0-2); Schistocytes SLIGHT = 2-5 cells HPF (0-1)
[2024-02-10 16:02] LABS: Hematocrit 27.9 % (36.0-47.0); Hemoglobin 9.2 g/dL (12.0-16.0); Mean Corpuscular Volume 93.9 fL (78.0-98.0); Mean Platelet Volume 9.5 fL (7.4-10.4); Platelet Count 365 10x3/uL (130-400); RBC Distribution Width 15.4 % (11.5-14.5); Red Blood Cell (RBC) Count 2.97 mill/uL (4.20-5.40)
[2024-02-10] MEDS ORDERED: Albumin 5% 1,000 ML ONE (17:15)
[2024-02-10] MEDS ORDERED: Vasopressin 20 UNITS/ML VIAL ONE (17:15)
[2024-02-10] MEDS ORDERED: Lidocaine 1% PF 5 ML VIAL ONE (17:18)
[2024-02-10] MEDS ORDERED: PROPOFOL 20 ML ONE (17:18)
[2024-02-10] MEDS ORDERED: SUCCINYLCHOLINE/SOD CL,ISO/PF 200 MG/10 ML SYRINGE FS ONE (17:18)
[2024-02-10] MEDS ORDERED: Ondansetron PF 4 MG/2 ML Vial ONE (17:18)
[2024-02-10] MEDS ORDERED: Rocuronium Bromide 10 MG/ML (10ML VIAL) ONE (17:18)
[2024-02-10] MEDS ORDERED: fentaNYL 50 mcg/mL 1 mL Vial ONE (17:21)
[2024-02-10] MEDS ORDERED: PHENYLEPHRINE-NS 100 MCG/ML 10 ML SYRINGE ONE (17:27)
[2024-02-10] MEDS ORDERED: Dexamethasone 4 mg/ml Vial ONE (18:21)
[2024-02-10] MEDS ORDERED: Norepinephrine 4 MG/4 ML VIAL ONE (18:43)
[2024-02-10] MEDS ORDERED: Glucagon 1 MG/ML KIT IM PRN (19:59)
[2024-02-10] MEDS ORDERED: Dextrose 5% in Water 1,000 ML IV PRN (19:59)
[2024-02-10] MEDS ORDERED: Dextrose 50% Abboject 50 ML SYRINGE SLOW IVP PRN (19:59)
[2024-02-10] MEDS ORDERED: Fentanyl BOLUS 250 ML IVPB PRN (20:15)
[2024-02-10] MEDS ORDERED: DISCONTINUE PREVIOUS NARCOTIC PAIN MEDICATIONS AND BENZODIAZEPINES FS SCH (20:15)
[2024-02-10] MEDS ORDERED: Morphine 2 MG/ML VIAL SLOW IVP PRN (20:15)
[2024-02-10] MEDS ORDERED: Ventilator Sedation Protocol 1 EACH FS SCH (20:15)
[2024-02-10] MEDS ORDERED: Propofol BOLUS 1,000 MG/100 ML VIAL IV PRN (20:15)
[2024-02-10 20:17] LABS: Actual Bicarbonate (HCO3a) 18.5 mEq/L (22-28); Base Excess (BEa) -5.7 mEq/L (-2.0 to +3.0); CO2 Tension 31.2 mmHg (35.0-45.0); Calcium, Ionized (arterial) 1.11 mmol/L (1.12-1.30); Carboxyhemoglobin (COHb) 1.6 gm% (0.0-3.0); Hematocrit-ABG 28 % (36.0-47.0); Hemoglobin (Hb) 9.6 g/dL (12.0-16.0); O2 Tension (PaO2), arterial 159.4 mmHg (> 60.0); Potassium - ABG Lab 3.37 mmol/L (3.70-5.30)
[2024-02-10 20:18] LABS: Puncture Site RRA
[2024-02-10 20:55] LABS: Phosphorus 2.7 mg/dL (2.3-4.7)
[2024-02-10] MEDS: Fentanyl CADD 100 ML IV SCH (21:13)
[2024-02-10] MEDS: Ventilator Sedation Protocol 1 EACH FS ONE (21:13)
[2024-02-10] MEDS: D5 1/2 NS w/10 mEq KCl 1,000 ML/1,000 ML BAG IV SCH ×2 (21:45→21:48)
[2024-02-11] MEDS: Lorazepam 2 MG/ML VIAL SLOW IVP PRN
[2024-02-11 04:31] LABS: Hematocrit 27.9 % (36.0-47.0); Hemoglobin 9.1 g/dL (12.0-16.0); Mean Corpuscular HGB CONC 32.6 g/dL (32.0-36.0); Mean Corpuscular Volume 92.1 fL (78.0-98.0); Mean Platelet Volume 9.6 fL (7.4-10.4); Platelet Count 328 10x3/uL (130-400); RBC Distribution Width 15.1 % (11.5-14.5); Red Blood Cell (RBC) Count 3.03 mill/uL (4.20-5.40)
[2024-02-11 04:55] LABS: Anion Gap 7 mmol/L (10-20); Globulin 3.1 g/dL (2.4-3.5)
[2024-02-11 04:59] LABS: ALT (SGPT) 97 U/L (8-55); AST (SGOT) 37 U/L (5-34); Albumin 2.2 g/dL (3.4-4.8); Alkaline Phosphatase 90 U/L (40-110); BUN (Urea Nitrogen) 20 mg/dL (9.8-20.1); Bilirubin, Total 0.4 mg/dL (0.2-1.2); Calc. Creatinine Clearance 68 mL/min (70-130); Calcium 7.4 mg/dL (7.8-10.44); Carbon Dioxide 24 mmol/L (23-31); Chloride 102 mmol/L (98-107); Estimated GFR 91; Glucose 291 mg/dL (83-110); Magnesium 1.4 mg/dL (1.6-2.6); Phosphorus 2.8 mg/dL (2.3-4.7); Potassium 3.6 mmol/L (3.5-5.1); Protein, Total 5.3 g/dL (5.8-8.1); Sodium 129 mmol/L (136-145)
[2024-02-11 06:00] LABS: Band 10 % (5-11); Burr Cells SLIGHT = 2-5 cells HPF (0-1); Large Platelets 3.9 % (0-5); Lymphocytes 7 % (21-51); Monocytes 4 % (0-10); Neutrophil 80 % (42-75); Platelet Adequacy Comment Platelets Normal; Polychromasia SLIGHT = 2-3 cells HPF (0-2); Smudge Cells 7.8 %
[2024-02-11] MEDS: Magnesium Sulfate In Water 4 GM in Premix 1 BAG IVPB SCH (06:16)
[2024-02-11 07:11] LABS: Actual Bicarbonate (HCO3a) 21.4 mEq/L (22-28); Base Excess (BEa) -2.9 mEq/L (-2.0 to +3.0); CO2 Tension 35.3 mmHg (35.0-45.0); Carboxyhemoglobin (COHb) 1.6 gm% (0.0-3.0); Hematocrit-ABG 26 % (36.0-47.0); O2 Tension (PaO2), arterial 163.5 mmHg (> 60.0); Potassium - ABG Lab 3.49 mmol/L (3.70-5.30); pH, Arterial 7.401 (7.35-7.45)
[2024-02-11 07:13] LABS: ALV-art Gradient 220.175 mmHg (0-20); Puncture Site RBA
[2024-02-11] MEDS: Propofol 1,000 MG/100 ML VIAL IV PRN (09:50)
[2024-02-11] MEDS: SODIUM PHOSPHATE IV SCH (14:50)
[2024-02-11] MEDS: TRACE ELEMENT IV SCH (14:50)
[2024-02-11] MEDS: [UNRECOGNIZED DRUG - OTHER] IV SCH (14:50)
[2024-02-11] MEDS: MULTIVITAMINS IV SCH (14:50)
[2024-02-12 04:27] LABS: #Basophils Less than 0.03 10x3/uL (0.0-0.2); %Basophils 0.1 % (0.0-1.0); %Eosinophils 0.9 % (0.0-10.0); %Lymphocytes 7.7 % (21.0-51.0); %Monocytes 12.8 % (0.0-10.0); %Neutrophils 77.3 % (42.0-75.0); Hemoglobin 7.6 g/dL (12.0-16.0); Mean Corpuscular Hemoglobin 30.6 pg (27.0-31.0); Mean Corpuscular Volume 92.7 fL (78.0-98.0); Mean Platelet Volume 10.1 fL (7.4-10.4); Platelet Count 292 10x3/uL (130-400); RBC Distribution Width 14.9 % (11.5-14.5); Red Blood Cell (RBC) Count 2.48 mill/uL (4.20-5.40)
[2024-02-12 04:50] LABS: Anion Gap 8 mmol/L (10-20); Globulin 3.2 g/dL (2.4-3.5)
[2024-02-12 04:54] LABS: ALT (SGPT) 65 U/L (8-55); AST (SGOT) 24 U/L (5-34); Albumin 1.8 g/dL (3.4-4.8); Alkaline Phosphatase 83 U/L (40-110); BUN (Urea Nitrogen) 23 mg/dL (9.8-20.1); Bilirubin, Total 0.6 mg/dL (0.2-1.2); Calc. Creatinine Clearance 64 mL/min (70-130); Calcium 7.6 mg/dL (7.8-10.44); Carbon Dioxide 24 mmol/L (23-31); Chloride 101 mmol/L (98-107); Estimated GFR 90; Glucose 139 mg/dL (83-110); Potassium 3.7 mmol/L (3.5-5.1); Sodium 129 mmol/L (136-145)
[2024-02-12 08:30] LABS: Magnesium 1.9 mg/dL (1.6-2.6); Phosphorus 3.1 mg/dL (2.3-4.7)
[2024-02-12] MEDS: Magnesium 2 GM/50 ML(in water) 2 GM in Premix 1 BAG IVPB SCH (09:31)
[2024-02-12] MEDS: TRACE ELEMENT IV SCH (13:43)
[2024-02-12] MEDS: SODIUM PHOSPHATE IV SCH (13:43)
[2024-02-12] MEDS: [UNRECOGNIZED DRUG - OTHER] IV SCH (13:43)
[2024-02-12] MEDS: MULTIVITAMINS IV SCH (13:43)
[2024-02-12] MEDS: Ketorolac Tromethamine 30 MG (1 mL) VIAL IVP PRN (17:23)
[2024-02-12] MEDS: traZODone HCl 50 MG TAB PO SCH (21:32)
[2024-02-13 05:13] LABS: #Basophils Less than 0.03 10x3/uL (0.0-0.2); %Basophils 0.1 % (0.0-1.0); %Eosinophils 3.7 % (0.0-10.0); %Lymphocytes 6.4 % (21.0-51.0); %Monocytes 9.8 % (0.0-10.0); %Neutrophils 78.7 % (42.0-75.0); Hematocrit 23.8 % (36.0-47.0); Hemoglobin 7.9 g/dL (12.0-16.0); Mean Corpuscular HGB CONC 33.2 g/dL (32.0-36.0); Mean Corpuscular Hemoglobin 30.4 pg (27.0-31.0); Mean Corpuscular Volume 91.5 fL (78.0-98.0); Mean Platelet Volume 10.1 fL (7.4-10.4); Platelet Count 305 10x3/uL (130-400)
[2024-02-13 05:49] LABS: Anion Gap 11 mmol/L (10-20)
[2024-02-13 05:53] LABS: BUN (Urea Nitrogen) 18 mg/dL (9.8-20.1); Calc. Creatinine Clearance 77 mL/min (70-130); Calcium 7.6 mg/dL (7.8-10.44); Carbon Dioxide 25 mmol/L (23-31); Chloride 100 mmol/L (98-107); Estimated GFR 91; Glucose 127 mg/dL (83-110); Magnesium 1.9 mg/dL (1.6-2.6); Phosphorus 3.7 mg/dL (2.3-4.7); Potassium 3.2 mmol/L (3.5-5.1); Sodium 133 mmol/L (136-145)
[2024-02-13] MEDS: Pantoprazole 40 MG VIAL IVP SCH (08:08)
[2024-02-13] MEDS: Potassium Chloride 20 MEQ in Premix 1 BAG IVPB SCH (08:09)
[2024-02-13] MEDS: Magnesium 2 GM/50 ML(in water) 2 GM in Premix 1 BAG IVPB SCH (09:14)
[2024-02-13] MEDS: Morphine 2 MG/ML VIAL SLOW IVP SCH (09:45)
[2024-02-14] MEDS: Morphine 2 MG/ML VIAL SLOW IVP PRN
[2024-02-14 05:22] LABS: Anion Gap 9 mmol/L (10-20)
[2024-02-14 05:26] LABS: BUN (Urea Nitrogen) 19 mg/dL (9.8-20.1); Calc. Creatinine Clearance 83 mL/min (70-130); Calcium 7.4 mg/dL (7.8-10.44); Carbon Dioxide 25 mmol/L (23-31); Chloride 103 mmol/L (98-107); Estimated GFR 93; Glucose 97 mg/dL (83-110); Phosphorus 3.6 mg/dL (2.3-4.7); Potassium 3.8 mmol/L (3.5-5.1); Sodium 133 mmol/L (136-145)
[2024-02-16 05:34] LABS: Anion Gap 7 mmol/L (10-20)
[2024-02-16 05:37] LABS: BUN (Urea Nitrogen) 18 mg/dL (9.8-20.1); Calc. Creatinine Clearance 75 mL/min (70-130); Calcium 7.9 mg/dL (7.8-10.44); Carbon Dioxide 25 mmol/L (23-31); Chloride 98 mmol/L (98-107); Estimated GFR 91; Glucose 127 mg/dL (83-110); Potassium 4.2 mmol/L (3.5-5.1); Sodium 126 mmol/L (136-145)
[2024-02-17 06:42] LABS: Anion Gap 11 mmol/L (10-20)
[2024-02-17 06:44] LABS: Phosphorus 3.4 mg/dL (2.3-4.7)
[2024-02-17 06:46] LABS: BUN (Urea Nitrogen) 19 mg/dL (9.8-20.1); Calc. Creatinine Clearance 78 mL/min (70-130); Calcium 7.8 mg/dL (7.8-10.44); Carbon Dioxide 23 mmol/L (23-31); Chloride 99 mmol/L (98-107); Estimated GFR 92; Glucose 107 mg/dL (83-110); Magnesium 1.7 mg/dL (1.6-2.6); Potassium 3.9 mmol/L (3.5-5.1); Sodium 129 mmol/L (136-145)
[2024-02-17] MEDS: Magnesium 2 GM/50 ML(in water) 2 GM in Premix 1 BAG IVPB SCH (11:14)
[2024-02-17] MEDS: SODIUM ACETATE IV SCH (16:20)
[2024-02-17] MEDS: SODIUM CHLORIDE IV SCH (16:20)
[2024-02-17] MEDS: SODIUM PHOSPHATE IV SCH (16:20)
[2024-02-17] MEDS: [UNRECOGNIZED DRUG - OTHER] IV SCH (16:20)
[2024-02-18 13:00] LABS: Anion Gap 9 mmol/L (10-20)
[2024-02-18 13:05] LABS: ALT (SGPT) 362 U/L (8-55); AST (SGOT) 230 U/L (5-34); Albumin 1.7 g/dL (3.4-4.8); Alkaline Phosphatase 285 U/L (40-110); BUN (Urea Nitrogen) 19 mg/dL (9.8-20.1); Bilirubin, Total 1.6 mg/dL (0.2-1.2); Calc. Creatinine Clearance 75 mL/min (70-130); Calcium 8.1 mg/dL (7.8-10.44); Carbon Dioxide 25 mmol/L (23-31); Chloride 98 mmol/L (98-107); Estimated GFR 91; Glucose 146 mg/dL (83-110); Magnesium 1.9 mg/dL (1.6-2.6); Phosphorus 3.3 mg/dL (2.3-4.7); Potassium 3.7 mmol/L (3.5-5.1); Protein, Total 6.7 g/dL (5.8-8.1); Sodium 128 mmol/L (136-145)
[2024-02-18] MEDS: Magnesium 2 GM/50 ML(in water) 2 GM in Premix 1 BAG IVPB SCH (15:46)
[2024-02-21 07:03] LABS: Globulin 4.7 g/dL (2.4-3.5)
[2024-02-21 07:07] LABS: ALT (SGPT) 267 U/L (8-55); AST (SGOT) 155 U/L (5-34); Albumin 1.7 g/dL (3.4-4.8); Alkaline Phosphatase 334 U/L (40-110); Anion Gap 9 mmol/L (10-20); BUN (Urea Nitrogen) 19 mg/dL (9.8-20.1); Calc. Creatinine Clearance 70 mL/min (70-130); Calcium 7.9 mg/dL (7.8-10.44); Carbon Dioxide 25 mmol/L (23-31); Chloride 101 mmol/L (98-107); Estimated GFR 92; Glucose 119 mg/dL (83-110); Magnesium 1.9 mg/dL (1.6-2.6); Phosphorus 3.1 mg/dL (2.3-4.7); Potassium 3.7 mmol/L (3.5-5.1); Protein, Total 6.4 g/dL (5.8-8.1); Sodium 131 mmol/L (136-145)
[2024-02-21] MEDS: Magnesium 2 GM/50 ML(in water) 2 GM in Premix 1 BAG IVPB SCH ×2 (08:22→09:39)
[2024-02-21] MEDS: SODIUM PHOSPHATE IV SCH (15:21)
[2024-02-21] MEDS: SODIUM CHLORIDE IV SCH (15:21)
[2024-02-21] MEDS: SODIUM ACETATE IV SCH (15:21)
[2024-02-21] MEDS: [UNRECOGNIZED DRUG - OTHER] IV SCH (15:21)
[2024-02-22] MEDS: Levothyroxine Sodium 88 MCG TAB PER TUBE SCH (06:19)
[2024-02-22 07:07] LABS: Globulin 4.4 g/dL (2.4-3.5)
[2024-02-22 07:09] LABS: Phosphorus 3.1 mg/dL (2.3-4.7)
[2024-02-22 07:12] LABS: ALT (SGPT) 207 U/L (8-55); AST (SGOT) 95 U/L (5-34); Albumin 1.7 g/dL (3.4-4.8); Alkaline Phosphatase 299 U/L (40-110); Anion Gap 12 mmol/L (10-20); BUN (Urea Nitrogen) 20 mg/dL (9.8-20.1); Bilirubin, Total 0.8 mg/dL (0.2-1.2); Calc. Creatinine Clearance 72 mL/min (70-130); Calcium 7.6 mg/dL (7.8-10.44); Carbon Dioxide 24 mmol/L (23-31); Chloride 102 mmol/L (98-107); Estimated GFR 92; Glucose 131 mg/dL (83-110); Magnesium 1.9 mg/dL (1.6-2.6); Potassium 3.7 mmol/L (3.5-5.1); Protein, Total 6.1 g/dL (5.8-8.1); Sodium 134 mmol/L (136-145)
[2024-02-22 07:31] LABS: Free T4 (Free Thyroxine) 0.61 ng/dL (0.70-1.48); Thyroid Stimulating Hormone 17.7019 uIU/mL (0.35-4.94)
[2024-02-22] MEDS: Magnesium 2 GM/50 ML(in water) 2 GM in Premix 1 BAG IVPB SCH (08:12)
[2024-02-22] MEDS: Levothyroxine Sodium 200 MCG VIAL IVP SCH (12:32)
[2024-02-23 05:16] LABS: Anion Gap 13 mmol/L (10-20); BUN (Urea Nitrogen) 20 mg/dL (9.8-20.1); Calc. Creatinine Clearance 72 mL/min (70-130); Calcium 7.6 mg/dL (7.8-10.44); Carbon Dioxide 23 mmol/L (23-31); Chloride 103 mmol/L (98-107); Estimated GFR 92; Glucose 111 mg/dL (83-110); Magnesium 1.9 mg/dL (1.6-2.6); Potassium 3.8 mmol/L (3.5-5.1); Sodium 135 mmol/L (136-145)
[2024-02-23] MEDS: Magnesium 2 GM/50 ML(in water) 2 GM in Premix 1 BAG IVPB SCH (08:47)
[2024-02-24 06:01] LABS: Albumin 1.6 g/dL (3.4-4.8); Phosphorus 3.1 mg/dL (2.3-4.7)
[2024-02-24 06:03] LABS: Anion Gap 12 mmol/L (10-20); BUN (Urea Nitrogen) 22 mg/dL (9.8-20.1); Calc. Creatinine Clearance 74 mL/min (70-130); Calcium 7.3 mg/dL (7.8-10.44); Carbon Dioxide 23 mmol/L (23-31); Chloride 102 mmol/L (98-107); Estimated GFR 92; Glucose 110 mg/dL (83-110); Potassium 3.7 mmol/L (3.5-5.1); Sodium 133 mmol/L (136-145)
[2024-02-24] MEDS ORDERED: Melatonin 3 MG TAB PO PRN (09:58)
[2024-02-24] MEDS: Magnesium 2 GM/50 ML(in water) 2 GM in Premix 1 BAG IVPB SCH (10:20)
[2024-02-24] MEDS: Levothyroxine Sodium 200 MCG VIAL IVP SCH (10:21)
[2024-02-27 06:16] LABS: Globulin 4.4 g/dL (2.4-3.5)
[2024-02-27 06:20] LABS: ALT (SGPT) 111 U/L (8-55); AST (SGOT) 69 U/L (5-34); Albumin 1.5 g/dL (3.4-4.8); Alkaline Phosphatase 236 U/L (40-110); Anion Gap 12 mmol/L (10-20); BUN (Urea Nitrogen) 21 mg/dL (9.8-20.1); Calc. Creatinine Clearance 73 mL/min (70-130); Calcium 7.7 mg/dL (7.8-10.44); Carbon Dioxide 24 mmol/L (23-31); Chloride 102 mmol/L (98-107); Estimated GFR 92; Glucose 151 mg/dL (83-110); Magnesium 1.8 mg/dL (1.6-2.6); Phosphorus 3.3 mg/dL (2.3-4.7); Potassium 3.6 mmol/L (3.5-5.1); Protein, Total 5.9 g/dL (5.8-8.1); Sodium 134 mmol/L (136-145)
[2024-02-27] MEDS: Magnesium 2 GM/50 ML(in water) 2 GM in Premix 1 BAG IVPB SCH (07:41)
[2024-02-27 08:43] LABS: #Basophils Less than 0.03 10x3/uL (0.0-0.2); %Basophils 0.1 % (0.0-1.0); %Eosinophils 5.6 % (0.0-10.0); %Lymphocytes 11.6 % (21.0-51.0); %Monocytes 13.1 % (0.0-10.0); Hematocrit 22.4 % (36.0-47.0); Mean Corpuscular HGB CONC 31.3 g/dL (32.0-36.0); Mean Corpuscular Hemoglobin 29.8 pg (27.0-31.0); Mean Corpuscular Volume 95.3 fL (78.0-98.0); Mean Platelet Volume 10.6 fL (7.4-10.4); Platelet Count 308 10x3/uL (130-400); RBC Distribution Width 15.9 % (11.5-14.5); Red Blood Cell (RBC) Count 2.35 mill/uL (4.20-5.40)
[2024-02-27] MEDS ORDERED: CEFAZOLIN 2 GM in Sodium Chloride 0.9% 100 ML IVPB SCH (18:45)
[2024-02-27] MEDS: Acetaminophen 325 MG TAB PO SCH (19:02)
[2024-02-27] MEDS: Ascorbic Acid 500 mg Chewable Tablet PO SCH (21:01)
[2024-02-27] MEDS: Ketorolac Tromethamine 30 MG (1 mL) VIAL IVP SCH (23:35)
[2024-02-28 08:00] VITALS: BP 154/68; TEMP 97.7
[2024-02-28] MEDS ORDERED: Ferrous Sulfate 325 MG TAB PO SCH (08:00)
[2024-02-28] MEDS ORDERED: Magnesium 2 GM/50 ML(in water) 2 GM in Premix 1 BAG IVPB SCH (08:00)
[2024-02-28] MEDS ORDERED: Lidocaine 2% PF 5 ML VIAL ONE (09:08)
[2024-02-28] MEDS ORDERED: Bupivacaine PF 0.5% 30 ML VIAL ONE (09:08)
[2024-02-28] MEDS ORDERED: EPINEPHrine 1 MG/ML VIAL ONE (09:08)
[2024-02-28] MEDS ORDERED: PROPOFOL 20 ML ONE (09:11)
[2024-02-28] MEDS ORDERED: SUCCINYLCHOLINE/SOD CL,ISO/PF 200 MG/10 ML SYRINGE FS ONE (09:11)
[2024-02-28] MEDS ORDERED: Rocuronium Bromide 10 MG/ML (10ML VIAL) ONE (09:11)
[2024-02-28] MEDS ORDERED: Lidocaine 1% PF 5 ML VIAL ONE (09:11)
[2024-02-28] MEDS ORDERED: fentaNYL PF 100 MCG/2 ML SYRINGE ONE (09:11)
[2024-02-28] MEDS ORDERED: Sodium Chloride 0.9% 100 ML ONE (09:40)
[2024-02-28] MEDS ORDERED: CEFAZOLIN 2 GM VIAL ONE (09:40)
[2024-02-28] MEDS ORDERED: ePHEDrine Sulfate 50 MG/10 ML VIAL ONE (10:37)
[2024-02-28] MEDS ORDERED: SUGAMMADEX SODIUM 200 MG/2 ML VIAL ONE (10:47)
[2024-02-28] MEDS ORDERED: EPINEPHrine 1 MG/10 ML Abboject SYRINGE ONE ×2 (10:56→11:11)
[2024-02-28] MEDS ORDERED: Calcium Chloride 1 GM/10 ML Abboject SYRINGE ONE ×2 (10:56→11:08)
[2024-02-28] MEDS ORDERED: Sodium Bicarb 50 MEQ/50 ML Abboject 8.4% SYRINGE ONE ×2 (10:56→11:09)
[2024-02-28 12:34] VITALS: BMI 20.5
== END 2024-02-28 15:47 | disposition expired | DRG 329 ==
LOC: ERS 23:09 → SURG B 01-07 01:58 → CCU 02-10 19:46 → SURG A 02-13 15:25
PROVIDERS: ADMIT Student in an Organized Health Care Education/Training Program; ATTEND Student in an Organized Health Care Education/Training Program
PROC: 0DTF0ZZ Resection of Right Large Intestine, Open Approach (ICD-10-PCS; 2024-01-08)
PROC: 02HV33Z Insertion of Infusion Device into Superior Vena Cava, Percutaneous Approach (ICD-10-PCS; 2024-01-08)
PROC: 02HV33Z Insertion of Infusion Device into Superior Vena Cava, Percutaneous Approach (ICD-10-PCS; 2024-01-14)
PROC: B5181ZA Fluoroscopy of Superior Vena Cava using Low Osmolar Contrast, Guidance (ICD-10-PCS; 2024-01-14)
PROC: B548ZZA Ultrasonography of Superior Vena Cava, Guidance (ICD-10-PCS; 2024-01-14)
PROC: 0D9670Z Drainage of Stomach with Drainage Device, Via Natural or Artificial Opening (ICD-10-PCS; principal; 2024-01-16)
PROC: 3E0436Z Introduction of Nutritional Substance into Central Vein, Percutaneous Approach (ICD-10-PCS; 2024-01-20)
PROC: 0DJ08ZZ Inspection of Upper Intestinal Tract, Via Natural or Artificial Opening Endoscopic (ICD-10-PCS; 2024-01-22)
PROC: 0D9P80Z Drainage of Rectum with Drainage Device, Via Natural or Artificial Opening Endoscopic (ICD-10-PCS; 2024-01-24)
PROC: 3E033XZ Introduction of Vasopressor into Peripheral Vein, Percutaneous Approach (ICD-10-PCS; 2024-02-08)
PROC: 0D988ZZ Drainage of Small Intestine, Via Natural or Artificial Opening Endoscopic (ICD-10-PCS; 2024-02-10)
PROC: 02HV33Z Insertion of Infusion Device into Superior Vena Cava, Percutaneous Approach (ICD-10-PCS; 2024-02-10)
PROC: 0D9670Z Drainage of Stomach with Drainage Device, Via Natural or Artificial Opening (ICD-10-PCS; 2024-02-10)
PROC: 0D9630Z Drainage of Stomach with Drainage Device, Percutaneous Approach (ICD-10-PCS; 2024-02-10)
PROC: 4A133R1 Monitoring of Arterial Saturation, Peripheral, Percutaneous Approach (ICD-10-PCS; 2024-02-10)
PROC: 30233J1 Transfusion of Nonautologous Serum Albumin into Peripheral Vein, Percutaneous Approach (ICD-10-PCS; 2024-02-10)
PROC: 5A12012 Performance of Cardiac Output, Single, Manual (ICD-10-PCS; 2024-02-28)
PROC: 0W9B30Z Drainage of Left Pleural Cavity with Drainage Device, Percutaneous Approach (ICD-10-PCS; 2024-02-28)
PROC: 5A12012 Performance of Cardiac Output, Single, Manual (ICD-10-PCS; 2024-02-28)
PROC: 02HV33Z Insertion of Infusion Device into Superior Vena Cava, Percutaneous Approach (ICD-10-PCS; 2024-02-28)
PROC: B5181ZA Fluoroscopy of Superior Vena Cava using Low Osmolar Contrast, Guidance (ICD-10-PCS; 2024-02-28)
PROC: 0JH63XZ Insertion of Tunneled Vascular Access Device into Chest Subcutaneous Tissue and Fascia, Percutaneous Approach (ICD-10-PCS; 2024-02-28)
DX: K56.51 Intestinal adhesions [bands], with partial obstruction (principal); E43 Unspecified severe protein-calorie malnutrition; J95.821 Acute postprocedural respiratory failure; Z66 Do not resuscitate; Z51.5 Encounter for palliative care; N18.6 End stage renal disease; N17.9 Acute kidney failure, unspecified; E87.1 Hypo-osmolality and hyponatremia; R18.8 Other ascites; Q43.8 Other specified congenital malformations of intestine; I47.20 Ventricular tachycardia, unspecified; I48.91 Unspecified atrial fibrillation; E78.5 Hyperlipidemia, unspecified; E86.0 Dehydration; K56.7 Ileus, unspecified; Z68.20 Body mass index [BMI] 20.0-20.9, adult; K63.89 Other specified diseases of intestine; E87.6 Hypokalemia; E11.22 Type 2 diabetes mellitus with diabetic chronic kidney disease; K56.2 Volvulus; I95.81 Postprocedural hypotension; I49.5 Sick sinus syndrome; E03.9 Hypothyroidism, unspecified; Z88.2 Allergy status to sulfonamides; Z88.6 Allergy status to analgesic agent; Z88.8 Allergy status to other drugs, medicaments and biological substances; Z79.84 Long term (current) use of oral hypoglycemic drugs; Z79.890 Hormone replacement therapy; Z79.899 Other long term (current) drug therapy; Z95.0 Presence of cardiac pacemaker; Z98.890 Other specified postprocedural states; Z90.49 Acquired absence of other specified parts of digestive tract; Z85.3 Personal history of malignant neoplasm of breast; Z90.12 Acquired absence of left breast and nipple
CPT/HCPCS: 36415; 36416; 36430; 36569; 36600; 71045; 74018; 74019; 74022; 74177; 76937; 77001; 80048; 80053; 80061; 82040; 82805; 83735; 84100; 84132; 84134; 84439; 84443; 84478; 84481; 85014; 85018; 85025; 85027; 85049; 85610; 85730; 86850; 86900; 86901; 88307; 93005; 94002; 94003; 96374; 96375; 97139; A4314; A4649; C1729; C1751; C9113; J0171; J0665; J1100; J1364; J1642; J1644; J1650; J1885; J1940; J2001; J2060; J2250; J2270; J2272; J2405; J2543; J2704; J2710; J2765; J3010; J3475; J3480; J3490; J7050; J7120; P9045; Q9967; S0028